=== PATIENT | female | born 1970 | race Caucasian/White ===

== ENCOUNTER 2019-01-21 14:03 | Emergency (ER) | payer SELFPAY ==
[~2019-01-21] VITALS: Ht 165.1 cm; Wt 77.1 kg
[2019-01-21 14:30] VITALS: BP 129/68
[2019-01-21 14:50] LABS: BILIRUBIN,URINE SMALL (NEG); CLARITY,URINE CLEAR; COLOR,URINE YELLOW; NITRITE,URINE NEGATIVE (NEG); PROTEIN,URINE NEGATIVE (NEG-TRACE)
[2019-01-21 14:57] LABS: BACTERIA,URINE MODERATE /HPF (0-FEW); RBC,URINE 0 /HPF (0-2); SQUAMOUS EPITHELIAL CELL,UR MANY /LPF
[2019-01-21] MEDS ORDERED: CIPROFLOXACIN 400MG PREMIX 200 ML IV ONE (15:30)
[2019-01-21] MEDS ORDERED: KETOROLAC 30 MG/ML VIAL. IV ONE (15:30)
[2019-01-21] MEDS ORDERED: ONDANSETRON PF 4 MG/2 ML VIAL. IV ONE (15:30)
--- NOTE | 2019-01-21 16:04 | RAD ---
Examination: CT ABDOMEN PELVIS WO CONTRAST History: UTI, upper mid abdominal pain Comparison/Correlation: None Findings: Axial images of the abdomen and pelvis were obtained without contrast. Sagittal and coronal reformatted images were provided. A nodule at the superior aspect of the left lung is partially seen. There may be minimal calcification within it. This is on the first image of the exam. Liver, spleen, pancreas, and adrenal glands are unremarkable. There is a 2.2 cm diameter calculus involving the gallbladder neck. No biliary dilatation or findings of acute inflammation. No radiopaque collecting system calculi. No hydronephrosis or perinephric stranding. Moderate quantity of stool in the colon noted. No bowel obstruction. The appendix is normal. Umbilical piercing is present. Uterus is unremarkable grossly. No ascites or pelvic free fluid. No enlarged abdominal or pelvic lymph nodes. Urinary bladder is unremarkable. Mild to moderate L5/S1 disc space narrowing with vacuum phenomenon is present. Impression: No radiopaque collecting system calculi or evidence of obstruction. Calculus is present lodged within the gallbladder neck. Correlate with symptoms. PQRS Compliance Statement: One or more of the following individualized dose reduction techniques were utilized for this examination: 1. Automated exposure control 2. Adjustment of the mA and/or kV according to patient size 3. Use of iterative reconstruction technique Electronically signed by: Gerson Clement MD (01/21/2019 4:01 PM) [facility]
--- NOTE | 2019-01-21 16:57 | RAD ---
ABDOMEN LTD History: Right upper quadrant pain. Comparison: CT abdomen and pelvis January 01, 2019. Technique: Transabdominal ultrasound images are obtained of the right upper quadrant. Findings: Visualized pancreas is unremarkable. Liver is normal in echogenicity. Right hepatic lobe measures 17.1 cm. Portal flow is hepatopedal. Large. Within the gallbladder. No pericholecystic fluid or gallbladder wall thickening. Common bile duct caliber is normal measuring 5 mm in diameter. The right kidney measures 11.2 x 4.9 x 4.1 cm in length and is without evidence of obstruction or stone. IVC is patent. IMPRESSION: 1. Cholelithiasis. 2. Otherwise, unremarkable abdominal ultrasound. Electronically signed by: Derik Yanes DO (01/21/2019 4:54 PM) [facility]
[2019-01-21] MEDS: CIPROFLOXACIN HCL 250 MG TABLET. PO ONE (17:19)
[2019-01-21] MEDS: MORPHINE SULFATE 10 MG/ML VIAL. IM ONE (17:19)
[2019-01-21] MEDS: ONDANSETRON ODT 4 MG TAB.RAPDIS. PO ONE (17:19)
[2019-01-21] MEDS ORDERED: HYDR-3164 PO (17:33)
[2019-01-21] MEDS ORDERED: ONDA4TAB7 PO (17:33)
[2019-01-21] MEDS ORDERED: CIPR500T94 PO (17:33)
--- NOTE | 2019-01-21 17:33 | PHYS DOC ---
Past Medical History Past Medical History: No Pertinent History Past Surgical History: Tonsillectomy, Tubal ligation Alcohol Use: None Drug Use: None Adult General Chief Complaint Chief Complaint: PAIN ON URINATION HPI HPI Patient is a 48 year old female who presents to the ED today complaining of 6 out of 10 right upper quadrant abdominal pain as well as dysuria, she states symptoms began 2 weeks ago, she states she was diagnosed with UTI as well as gallstones. She states she was put on Bactrim. She states she finished the Bactrim but still has UTI symptoms. Denies any fever, nausea, vomiting. Denies anything specifically relieving or exacerbating her symptoms. Review of Systems Review of Systems Constitutional: Denies fever or chills [] Eyes: Denies change in visual acuity, redness, or eye pain [] HENT: Denies nasal congestion or sore throat [] Respiratory: Denies cough or shortness of breath [] Cardiovascular: No additional information not addressed in HPI [] GI: Reports right upper quadrant abdominal pain, denies nausea, vomiting, bloody stools or diarrhea [] : Reports dysuria, denies hematuria [] Musculoskeletal: Denies back pain or joint pain [] Integument: Denies rash or skin lesions [] Neurologic: Denies headache, focal weakness or sensory changes [] All other systems were reviewed and found to be within normal limits, except as documented in this note. Current Medications Current Medications Current Medications Medications (Trade) Dose Ordered Sig/Loan Start Time Stop Time Status Last Admin Dose Admin Ciprofloxacin (Cipro) 500 mg 1X ONCE 01/21/19 17:30 01/21/19 17:31 01/21/19 17:19 500 MG Ciprofloxacin/ Dextrose 200 ml @ 200 mls/hr 1X ONCE 01/21/19 15:30 01/21/19 16:29 Cancel Ketorolac Tromethamine (Toradol 30mg Vial) 30 mg 1X ONCE 01/21/19 15:30 01/21/19 15:31 Cancel Morphine Sulfate (Morphine Sulfate) 5 mg 1X ONCE 01/21/19 17:30 01/21/19 17:31 01/21/19 17:19 5 MG Ondansetron HCl (Zofran Odt) 4 mg 1X ONCE 01/21/19 17:30 01/21/19 17:31 01/21/19 17:19 4 MG Ondansetron HCl (Zofran) 4 mg 1X ONCE 01/21/19 15:30 01/21/19 15:31 Cancel Allergies Allergies Allergies Coded Allergies Type Severity Reaction Last Updated Verified Penicillins Allergy Intermediate 01/21/19 Yes Physical Exam Physical Exam Constitutional: Well developed, well nourished, no acute distress, non-toxic appearance. [] HENT: Normocephalic, atraumatic, bilateral external ears normal, oropharynx moist, no oral exudates, nose normal. [] Eyes: PERRLA, EOMI, conjunctiva normal, no discharge. [] Neck: Normal range of motion, no tenderness, supple, no stridor. [] Cardiovascular:Heart rate regular rhythm, no murmur [] Lungs & Thorax: Bilateral breath sounds clear to auscultation [] Abdomen: Bowel sounds normal, soft, mild tenderness in the right upper quadrant with negative Ramos sign tenderness, no right lower quadrant tenderness, no masses, no pulsatile masses. [] Skin: Warm, dry, no erythema, no rash. [] Back: No tenderness, no CVA tenderness. [] Extremities: No tenderness, no cyanosis, no clubbing, ROM intact, no edema. [] Neurologic: Alert and oriented X 3, normal motor function, normal sensory function, no focal deficits noted. [] Psychologic: Affect normal, judgement normal, mood normal. [] Current Patient Data Vital Signs Vital Signs Date Time Temp Pulse Resp B/P (MAP) Pulse Ox O2 Delivery O2 Flow Rate FiO2 01/21/19 14:30 98.4 72 16 129/68 (88) 97 Room Air 98.4 Lab Values Laboratory Tests Test 01/21/19 14:40 Urine Collection Type Unknown Urine Color Yellow Urine Clarity Clear Urine pH 6.0 Urine Specific [place] >=1.030 Urine Protein Negative mg/dL (NEG-TRACE) Urine Glucose (UA) Negative mg/dL (NEG) Urine Ketones (Stick) Negative mg/dL (NEG) Urine Blood Negative (NEG) Urine Nitrite Negative (NEG) Urine Bilirubin Small (NEG) Urine Urobilinogen Dipstick 1.0 mg/dL (0.2 mg/dL) Urine Leukocyte Esterase Moderate (NEG) Urine RBC 0 /HPF (0-2) Urine WBC 11-20 /HPF (0-4) Urine Squamous Epithelial Cells Many /LPF Urine Bacteria Moderate /HPF (0-FEW) Urine Mucus Mod /LPF EKG EKG [] Radiology/Procedures Radiology/Procedures []PROCEDURE: ABDOMEN LTD ABDOMEN LTD History: Right upper quadrant pain. Comparison: CT abdomen and pelvis January 01, 2019. Technique: Transabdominal ultrasound images are obtained of the right upper quadrant. Findings: Visualized pancreas is unremarkable. Liver is normal in echogenicity. Right hepatic lobe measures 17.1 cm. Portal flow is hepatopedal. Large. Within the gallbladder. No pericholecystic fluid or gallbladder wall thickening. Common bile duct caliber is normal measuring 5 mm in diameter. The right kidney measures 11.2 x 4.9 x 4.1 cm in length and is without evidence of obstruction or stone. IVC is patent. IMPRESSION: 1. Cholelithiasis. 2. Otherwise, unremarkable abdominal ultrasound. Electronically signed by: Derik Yanes DO (01/21/2019 4:54 PM) [facility] DICTATED and SIGNED BY: DERIK YANES DO DATE: 01/21/191653 PROCEDURE: CT ABDOMEN PELVIS WO CONTRAST Examination: CT ABDOMEN PELVIS WO CONTRAST History: UTI, upper mid abdominal pain Comparison/Correlation: None Findings: Axial images of the abdomen and pelvis were obtained without contrast. Sagittal and coronal reformatted images were provided. A nodule at the superior aspect of the left lung is partially seen. There may be minimal calcification within it. This is on the first image of the exam. Liver, spleen, pancreas, and adrenal glands are unremarkable. There is a 2.2 cm diameter calculus involving the gallbladder neck. No biliary dilatation or findings of acute inflammation. No radiopaque collecting system calculi. No hydronephrosis or perinephric stranding. Moderate quantity of stool in the colon noted. No bowel obstruction. The appendix is normal. Umbilical piercing is present. Uterus is unremarkable grossly. No ascites or pelvic free fluid. No enlarged abdominal or pelvic lymph nodes. Urinary bladder is unremarkable. Mild to moderate L5/S1 disc space narrowing with vacuum phenomenon is present. Impression: No radiopaque collecting system calculi or evidence of obstruction. Calculus is present lodged within the gallbladder neck. Correlate with symptoms. PQRS Compliance Statement: One or more of the following individualized dose reduction techniques were utilized for this examination: 1. Automated exposure control 2. Adjustment of the mA and/or kV according to patient size 3. Use of iterative reconstruction technique Electronically signed by: Gerson Kaufman MD (01/21/2019 4:01 PM) [facility] DICTATED and SIGNED BY: GERSON KAUFMAN MD DATE: 01/21/19 160 Course & Med Decision Making Course & Med Decision Making Pertinent Labs and Imaging studies reviewed. (See chart for details) This is a 48-year-old female patient presenting to the ED today with dysuria and right upper quadrant abdominal pain, was diagnosed with gallstones and UTI roughly 2 weeks ago, finished Bactrim yesterday, still has dysuria. Limited right upper quadrant abdominal ultrasound noted for cholelithiasis, no ch olecystitis. CT of the abdomen and pelvis is negative. Urine positive for UTI. Was started on Cipro. Provided that general surgeon for follow-up. Dragon Disclaimer Dragon Disclaimer This electronic medical record was generated, in whole or in part, using a voice recognition dictation system. Departure Departure Impression: Primary Impression: Cholelithiasis Additional Impression: Urinary tract infection Disposition: HOME, SELF-CARE Condition: STABLE Referrals: NO PCP (PCP) EVA PARMAR MD follow up in one week Patient Instructions: Cholelithiasis, [id number], Urinary Tract Infection Additional Instructions: You were evaluated in the emergency room and noted to have gallbladder disease as well as infection in your urine. We put you on Cipro, ensure you complete them. Follow-up with the general surgeon provided as well as a primary care doctor in the next 7 days. He Scripts Hydrocodone/Apap 5-325 (NORCO 5-325 TABLET) 1 Each Tablet 1 TAB PO Q6HRS, #12 TAB Prov: VICKI CHRISTOPHER COLOR TECHNICIAN 01/21/19 Ondansetron Hcl (ZOFRAN) 4 Mg Tablet 1 TAB PO Q6HRS, #20 TAB Prov: MUTUNGA,VICKI COLOR TECHNICIAN 01/21/19 Ciprofloxacin Hcl (CIPRO) 500 Mg Tablet 1 TAB PO BID, #14 TAB Prov: MUTUNGAVICKI COLOR TECHNICIAN 01/21/19 Problem Qualifiers Primary Impression: Cholelithiasis Cholelithiasis location: gallbladder Cholecystitis presence: without cholecystitis Biliary obstruction: without biliary obstruction Qualified Codes: K80.20 - Calculus of gallbladder without cholecystitis without obstruction Additional Impression: Urinary tract infection Urinary tract infection type: site unspecified Hematuria presence: without hematuria Qualified Codes: N39.0 - Urinary tract infection, site not specified VICKI CHRISTOPHER APRN Jan 21, 2019 17:33
== END 2019-01-21 17:38 | disposition home or self-care (01) ==
LOC: ER 14:03
DX: N39.0 Urinary tract infection, site not specified (principal); K80.20 Calculus of gallbladder without cholecystitis without obstruction; Z98.51 Tubal ligation status; Z88.0 Allergy status to penicillin
CPT/HCPCS: 74176; 76705; 81001; 87086; 96372; 99285; J2270; Q0162

== ENCOUNTER 2019-04-06 20:57 | Inpatient (IN) | payer OTHER ==
[~2019-04-06] VITALS: Ht 165.1 cm; Wt 77.1 kg
[~2019-04-06 20:57] MED LIST: CIPR500T94 PO; HYDR-3164 PO; ONDA4TAB7 PO
--- NOTE | 2019-04-06 21:18 | PHYS DOC ---
Past Medical History Past Medical History: No Pertinent History Past Surgical History: Tonsillectomy, Tubal ligation Alcohol Use: None Drug Use: None Adult General Chief Complaint Chief Complaint: syncope HPI HPI Patient is a 49-year-old female who presents via EMS after reportedly having syncopal episode at home. Patient states that she had a few drinks of alcohol beforehand and then was getting sick and vomiting and she had a syncopal event. She denies any chest pain or shortness of breath. She also denies any headache. Patient states that she has been under a great deal of stress recently stating that she was just diagnosed with cervical cancer.[] Review of Systems Review of Systems Constitutional: Denies fever or chills [] Respiratory: Denies cough or shortness of breath [] Cardiovascular: No additional information not addressed in HPI [] GI: Denies abdominal pain. Complains of nausea and vomiting without diarrhea [] Musculoskeletal: Denies back pain or joint pain [] Integument: Denies rash or skin lesions [] Neurologic: Denies headache, focal weakness or sensory changes. Positive syncope. [] All other systems were reviewed and found to be within normal limits, except as documented in this note. Current Medications Current Medications Current Medications Medications (Trade) Dose Ordered Sig/Loan Start Time Stop Time Status Last Admin Dose Admin Fentanyl Citrate (Fentanyl 2ml Vial) 50 mcg 1X ONCE 04/06/19 23:00 04/06/19 23:01 DC 04/06/19 23:34 50 MCG Info (CONTRAST GIVEN -- Rx MONITORING) 1 each PRN DAILY PRN 04/06/19 23:00 04/08/19 22:59 Iohexol (Omnipaque 300 Mg/ml) 75 ml 1X ONCE 04/06/19 23:00 04/06/19 23:01 DC Sodium Chloride 1,000 ml @ 1,000 mls/hr 1X ONCE 04/06/19 21:30 04/06/19 22:29 DC 04/06/19 21:32 1,000 MLS/HR Allergies Allergies Allergies Coded Allergies Type Severity Reaction Last Updated Verified Penicillins Allergy Intermediate 01/21/19 Yes Physical Exam Physical Exam Constitutional: Well developed, well nourished, no acute distress, moderately anxious. [] HENT: Normocephalic, atraumatic, bilateral external ears normal, oropharynx [address], no oral exudates, nose normal. [] Eyes: PERRLA, EOMI, conjunctiva normal, no discharge. [] Neck: Normal range of motion, no tenderness, supple, no stridor. [] Cardiovascular: Regular rate and rhythm[] Lungs & Thorax: Bilateral breath sounds clear to auscultation [] Abdomen: Bowel sounds normal, soft, no tenderness. [] Skin: Warm, dry, no erythema, no rash. [] Extremities: No tenderness, no cyanosis, no clubbing, ROM intact, no edema. [] Neurologic: Alert and oriented X 3, no focal deficits noted. [] Current Patient Data Vital Signs Vital Signs Date Time Temp Pulse Resp B/P (MAP) Pulse Ox O2 Delivery O2 Flow Rate FiO2 04/06/19 23:34 16 97 Room Air 04/06/19 20:57 97.6 90 98/53 (68) 97.6 Lab Values Laboratory Tests Test 04/06/19 21:18 04/06/19 21:45 White Blood Count 9.2 x10^3/uL (4.0-11.0) Red Blood Count 5.17 x10^6/uL (3.50-5.40) Hemoglobin 16.1 g/dL (12.0-15.5) H Hematocrit 47.2 % (36.0-47.0) H Mean Corpuscular Volume 91 fL (79-100) Mean Corpuscular Hemoglobin 31 pg (25-35) Mean Corpuscular Hemoglobin Concent 34 g/dL (31-37) Red Cell Distribution Width 13.7 % (11.5-14.5) Platelet Count 426 x10^3/uL (140-400) H Neutrophils (%) (Auto) 49 % (31-73) Lymphocytes (%) (Auto) 40 % (24-48) Monocytes (%) (Auto) 8 % (0-9) Eosinophils (%) (Auto) 2 % (0-3) Basophils (%) (Auto) 1 % (0-3) Neutrophils # (Auto) 4.5 x10^3/uL (1.8-7.7) Lymphocytes # (Auto) 3.7 x10^3/uL (1.0-4.8) Monocytes # (Auto) 0.7 x10^3/uL (0.0-1.1) Eosinophils # (Auto) 0.2 x10^3/uL (0.0-0.7) Basophils # (Auto) 0.1 x10^3/uL (0.0-0.2) Sodium Level 144 mmol/L (136-145) Potassium Level 3.5 mmol/L (3.5-5.1) Chloride Level 103 mmol/L (98-107) Carbon Dioxide Level 29 mmol/L (21-32) Anion Gap 12 (6-14) Blood Urea Nitrogen 9 mg/dL (7-20) Creatinine 0.8 mg/dL (0.6-1.0) Estimated GFR (Cockcroft-Gault) 76.9 BUN/Creatinine Ratio 11 (6-20) Glucose Level 102 mg/dL (70-99) H Calcium Level 9.0 mg/dL (8.5-10.1) Magnesium Level 2.1 mg/dL (1.8-2.4) Total Bilirubin 0.3 mg/dL (0.2-1.0) Aspartate Amino Transferase (AST) 32 U/L (15-37) Alanine Aminotransferase (ALT) 61 U/L (14-59) H Alkaline Phosphatase 44 U/L (46-116) L Total Protein 8.0 g/dL (6.4-8.2) Albumin 3.9 g/dL (3.4-5.0) Albumin/Globulin Ratio 1.0 (1.0-1.7) Ethyl Alcohol Level 221 mg/dL (0-10) H Urine Collection Type Unknown Urine Color Yellow Urine Clarity Clear Urine pH 5.5 Urine Specific [place] 1.010 Urine Protein Negative mg/dL (NEG-TRACE) Urine Glucose (UA) Negative mg/dL (NEG) Urine Ketones (Stick) Negative mg/dL (NEG) Urine Blood Moderate (NEG) Urine Nitrite Negative (NEG) Urine Bilirubin Negative (NEG) Urine Urobilinogen Dipstick 0.2 mg/dL (0.2 mg/dL) Urine Leukocyte Esterase Small (NEG) Urine RBC 11-20 /HPF (0-2) Urine WBC 5-10 /HPF (0-4) Urine Squamous Epithelial Cells Mod /LPF Urine Bacteria Few /HPF (0-FEW) Urine Mucus Mod /LPF Laboratory Tests 04/06/19 21:18 Laboratory Tests 04/06/19 21:18 EKG EKG EKG demonstrates normal sinus rhythm with rate of 67.[] Radiology/Procedures Radiology/Procedures [] Impressions: PROCEDURE: CT ABD PELV W/ IV CONTRST ONLY CT ABD PELV W/ IV CONTRST ONLY History: Lower abdominal pain. Recent endometrial biopsy. Technique: After the administration of intravenous contrast, CT imaging was performed of the abdomen and pelvis. Multiplanar images are reviewed. Exposure: One or more of the following individualized dose reduction techniques were utilized for this examination: 1. Automated exposure control 2. Adjustment of the mA and/or kV according to patient size 3. Use of iterative reconstruction technique. Comparison: None Findings: Lower chest: No consolidation or pleural effusion. Abdomen and pelvis: The liver, spleen, adrenal glands, and pancreas are unremarkable. Cholelithiasis. Mild gallbladder wall thickening. No pericholecystic fluid. Normal appearance of the kidneys. No hydronephrosis. No renal calculi. Normal appendix. No evidence of bowel obstruction. Mild transverse colonic wall thickening at the hepatic flexure. Pelvic contents are unremarkable. No ascites. No pathologic lymphadenopathy. Bones: No pathologic osseous lesions. Lower lumbar spondylosis most prominent L5-S1. Impression: 1. Cholelithiasis with suggestion of gallbladder wall thickening. If concern for gallbladder pathology recommend ultrasound. 2. Mild apparent transverse colonic wall thickening, may relate to nondistention. Correlate for colitis. Electronically signed by: Derik Dewitt DO (04/06/2019 11:33 PM) [id number] PROCEDURE: CT HEAD WO CONTRAST CT HEAD WO CONTRAST History: Altered mental status. History of cervical cancer. Comparison: None. Technique: Noncontrast CT imaging was performed of the head. Coronal reconstruction was performed. Exposure: One or more of the following individualized dose reduction techniques were utilized for this examination: 1. Automated exposure control 2. Adjustment of the mA and/or kV according to patient size 3. Use of iterative reconstruction technique. Findings: No intracranial hemorrhage. No mass effect. No hydrocephalus. Extra-axial spaces are unremarkable. Imaged orbits are unremarkable. Imaged paranasal sinuses and mastoid air cells are clear. Impression: 1. No acute intracranial abnormality. Electronically signed by: Derik Dewitt DO (04/06/2019 11:21 PM) [id number] DICTATED and SIGNED BY: DERIK DEWITT DO DATE: 04/06/192320 Course & Med Decision Making Course & Med Decision Making Pertinent Labs and Imaging studies reviewed. (See chart for details) [] Dragon Disclaimer Dragon Disclaimer This electronic medical record was generated, in whole or in part, using a voice recognition dictation system. Departure Departure Impression: Primary Impression: Vasovagal syncope Additional Impressions: Alcohol intoxication Altered mental state Lower abdominal pain Disposition: ADMITTED INPATIENT Admitting Physician: SHAYY (Dr. Robin) Condition: IMPROVED Referrals: NO PCP (PCP) Patient Instructions: Alcohol Intoxication, Syncope Scripts Ondansetron Hcl (ZOFRAN) 4 Mg Tablet 4 MG PO PRN TID PRN for NAUSEA, #15 TAB nausea/vomiting Prov: MARILYN SAN Jr. DO 04/06/19 Problem Qualifiers Additional Impressions: Alcohol intoxication Complication of substance-induced condition: uncomplicated Qualified Codes: F10.920 - Alcohol use, unspecified with intoxication, uncomplicated Altered mental state Altered mental status type: unspecified Qualified Codes: R41.82 - Altered mental status, unspecified MARILYN SAN Jr. DO Apr 06, 2019 21:18
[2019-04-06 21:25] LABS: BASO # 0.1 x10^3/uL (0.0-0.2); BASO % 1 % (0-3); EOS # 0.2 x10^3/uL (0.0-0.7); EOS % 2 % (0-3); HEMATOCRIT 47.2 % (36.0-47.0); HEMOGLOBIN 16.1 g/dL (12.0-15.5); LYMPH # 3.7 x10^3/uL (1.0-4.8); LYMPH % 40 % (24-48); MEAN CORPUSCULAR HEMOGLOBIN 31 pg (25-35); MEAN CORPUSCULAR HGB CONC 34 g/dL (31-37); MEAN CORPUSCULAR VOLUME 91 fL (79-100); MONO # 0.7 x10^3/uL (0.0-1.1); MONO % 8 % (0-9); NEUT # 4.5 x10^3/uL (1.8-7.7); NEUT % 49 % (31-73); PLATELET COUNT 426 x10^3/uL (140-400); RED BLOOD COUNT 5.17 x10^6/uL (3.50-5.40); RED CELL DISTRIBUTION WIDTH 13.7 % (11.5-14.5); WHITE BLOOD COUNT 9.2 x10^3/uL (4.0-11.0)
[2019-04-06] MEDS ORDERED: IV NORMAL SALINE 1000ML BAG 1,000 ML IV ONE (21:30)
[2019-04-06 21:33] LABS: CREATININE 0.8 mg/dL (0.6-1.0); GFR 76.9; POTASSIUM 3.5 mmol/L (3.5-5.1)
[2019-04-06 21:38] LABS: ALBUMIN 3.9 g/dL (3.4-5.0); MAGNESIUM 2.1 mg/dL (1.8-2.4); TOTAL BILIRUBIN 0.3 mg/dL (0.2-1.0)
[2019-04-06 22:05] LABS: BILIRUBIN,URINE NEGATIVE (NEG); CLARITY,URINE CLEAR; COLOR,URINE YELLOW; NITRITE,URINE NEGATIVE (NEG); PH,URINE 5.5; PROTEIN,URINE NEGATIVE (NEG-TRACE); UROBILINOGEN,URINE 0.2 mg/dL (0.2 mg/dL)
[2019-04-06 22:13] LABS: SQUAMOUS EPITHELIAL CELL,UR MOD /LPF
[2019-04-06 22:14] LABS: BACTERIA,URINE FEW /HPF (0-FEW)
[2019-04-06] MEDS ORDERED: ONDA4TAB7 PO (22:22)
--- NOTE | 2019-04-06 22:52 | RAD ---
EXAM: AP View of the chest DATE: 04/06/2019 9:13 PM INDICATION: Syncope COMPARISON: No Prior FINDINGS: The heart is not enlarged. Mediastinal and hilar contours are normal. No focal parenchymal airspace opacity. No pleural effusion or pneumothorax. IMPRESSION: 1. No radiographic evidence for acute cardiopulmonary process. Electronically signed by: Rob Wiley MD (04/06/2019 10:48 PM) [facility]
[2019-04-06] MEDS ORDERED: IOHEXOL 300 MG/ML 100ML VIAL. IV ONE (23:00)
[2019-04-06] MEDS ORDERED: CONTRAST GIVEN. MC PRN (23:00)
[2019-04-06] MEDS ORDERED: fentaNYL PF VIAL 100 MCG/2 ML VIAL IVP ONE (23:00)
--- NOTE | 2019-04-06 23:24 | RAD ---
CT HEAD WO CONTRAST History: Altered mental status. History of cervical cancer. Comparison: None. Technique: Noncontrast CT imaging was performed of the head. Coronal reconstruction was performed. Exposure: One or more of the following individualized dose reduction techniques were utilized for this examination: 1. Automated exposure control 2. Adjustment of the mA and/or kV according to patient size 3. Use of iterative reconstruction technique. Findings: No intracranial hemorrhage. No mass effect. No hydrocephalus. Extra-axial spaces are unremarkable. Imaged orbits are unremarkable. Imaged paranasal sinuses and mastoid air cells are clear. Impression: 1. No acute intracranial abnormality. Electronically signed by: Derik Yanes DO (04/06/2019 11:21 PM) [facility]
--- NOTE | 2019-04-06 23:36 | RAD ---
CT ABD PELV W/ IV CONTRST ONLY History: Lower abdominal pain. Recent endometrial biopsy. Technique: After the administration of intravenous contrast, CT imaging was performed of the abdomen and pelvis. Multiplanar images are reviewed. Exposure: One or more of the following individualized dose reduction techniques were utilized for this examination: 1. Automated exposure control 2. Adjustment of the mA and/or kV according to patient size 3. Use of iterative reconstruction technique. Comparison: None Findings: Lower chest: No consolidation or pleural effusion. Abdomen and pelvis: The liver, spleen, adrenal glands, and pancreas are unremarkable. Cholelithiasis. Mild gallbladder wall thickening. No pericholecystic fluid. Normal appearance of the kidneys. No hydronephrosis. No renal calculi. Normal appendix. No evidence of bowel obstruction. Mild transverse colonic wall thickening at the hepatic flexure. Pelvic contents are unremarkable. No ascites. No pathologic lymphadenopathy. Bones: No pathologic osseous lesions. Lower lumbar spondylosis most prominent L5-S1. Impression: 1. Cholelithiasis with suggestion of gallbladder wall thickening. If concern for gallbladder pathology recommend ultrasound. 2. Mild apparent transverse colonic wall thickening, may relate to nondistention. Correlate for colitis. Electronically signed by: Derik Yanes DO (04/06/2019 11:33 PM) [facility]
[2019-04-06] MEDS ORDERED: ONDANSETRON PF 4 MG/2 ML VIAL. IV PRN (23:45)
[2019-04-07] VITALS (7 sets, daily range): BP systolic 90–115; BP diastolic 41–67
[2019-04-07] MEDS: MORPHINE SULFATE 2 MG/ML VIAL. IV PRN ×2 (01:38→08:45)
[2019-04-07 08:50] LABS: BASO # 0.1 x10^3/uL (0.0-0.2); BASO % 1 % (0-3); EOS # 0.2 x10^3/uL (0.0-0.7); EOS % 3 % (0-3); HEMOGLOBIN 14.2 g/dL (12.0-15.5); LYMPH # 2.3 x10^3/uL (1.0-4.8); LYMPH % 31 % (24-48); MEAN CORPUSCULAR HEMOGLOBIN 31 pg (25-35); MEAN CORPUSCULAR HGB CONC 34 g/dL (31-37); MEAN CORPUSCULAR VOLUME 93 fL (79-100); MONO # 0.8 x10^3/uL (0.0-1.1); MONO % 10 % (0-9); NEUT % 55 % (31-73); PLATELET COUNT 370 x10^3/uL (140-400); RED BLOOD COUNT 4.53 x10^6/uL (3.50-5.40); RED CELL DISTRIBUTION WIDTH 13.7 % (11.5-14.5); WHITE BLOOD COUNT 7.3 x10^3/uL (4.0-11.0)
[2019-04-07 09:12] LABS: CALCIUM 8.5 mg/dL (8.5-10.1); CREATININE 0.7 mg/dL (0.6-1.0); GFR 89.7; POTASSIUM 3.8 mmol/L (3.5-5.1)
[2019-04-07] MEDS: NICOTINE 21MG PATCH. TD SCH (10:09)
--- NOTE | 2019-04-07 11:11 | PDOC1 ---
History and Physical Date of Admission Date of Admission DATE: 04/07/19 TIME: 11:10 Identification/Chief Complaint Chief Complaint seen in er , 49-year-old female who presents via EMS after reportedly having syncopal episode at home. Patient states that she had a few drinks of alcohol beforehand and then was getting sick and vomiting and she had a syncopal event. She denies any chest pain or shortness of breath. She also denies any headache. Patient states that she has been under a great deal of stress recently stating that she was just diagnosed with cervical cancer. also c/o RUQ DISCOMFORT, LOWER ABD PAIN AFTER CERVICAL BX LAST WEEK, WAS TOLD SHE HAS GALLSTONES[ Past Medical History Past Medical History CERVICAL CANCER Pulmonary: COPD Heme/Onc: Cancer Social History ALCOHOL: heavy Current Problem List Problem List Problems Medical Problems: (1) Alcohol intoxication Status: Acute (2) Altered mental state Status: Acute (3) Lower abdominal pain Status: Acute (4) Vasovagal syncope Status: Acute Current Medications Current Medications Current Medications Sodium Chloride 1,000 ml @ 1,000 mls/hr 1X ONCE IV Last administered on 04/06/19at 21:32; Start 04/06/19 at 21:30; Stop 04/06/19 at 22:29; Status DC Fentanyl Citrate (Fentanyl 2ml Vial) 50 mcg 1X ONCE IVP Last administered on 04/06/19at 23:34; Start 04/06/19 at 23:00; Stop 04/06/19 at 23:01; Status DC Iohexol (Omnipaque 300 Mg/ml) 75 ml 1X ONCE IV Last administered on 04/06/19at 23:00; Start 04/06/19 at 23:00; Stop 04/06/19 at 23:01; Status DC Info (CONTRAST GIVEN -- Rx MONITORING) 1 each PRN DAILY PRN MC SEE COMMENTS; Start 04/06/19 at 23:00; Stop 04/08/19 at 22:59 Ondansetron HCl (Zofran) 4 mg PRN Q8HRS PRN IV NAUSEA/VOMITING 1ST CHOICE; Start 04/06/19 at 23:45; Stop 04/07/19 at 23:44 Morphine Sulfate (Morphine Sulfate) 2 mg PRN Q2HR PRN IV SEVERE PAIN 7-10 Last administered on 04/07/19at 08:45; Start 04/06/19 at 23:45; Stop 04/07/19 at 23:44 Nicotine (Nicoderm Cq 21mg) 1 patch DAILY TD Last administered on 04/07/19at 10:09; Start 04/07/19 at 09:20 Active Scripts Active Allergies Allergies: Coded Allergies: Penicillins (Verified Allergy, Intermediate, 01/21/19) ROS Review of System Review of Systems Review of Systems Constitutional: Denies fever or chills [] Respiratory: Denies cough or shortness of breath [] Cardiovascular: No additional information not addressed in HPI [] GI: MILD ruq pain, lower abdominal pain. Complains of nausea and vomiting without diarrhea [] Musculoskeletal: Denies back pain or joint pain [] Integument: Denies rash or skin lesions [] Neurologic: Denies headache, focal weakness or sensory changes. Positive syncope. [] 14 pt systems were reviewed and found to be within normal limits, except as documented PSYCHOLOGICAL ROS: YES: Anxiety Physical Exam Physical Exam Physical Exam Physical Exam Constitutional: Well developed, well nourished, no acute distress, moderately anxious. [] HENT: Normocephalic, atraumatic, bilateral external ears normal, oropharynx moist, no oral exudates, nose normal. [] Eyes: PERRLA, EOMI, conjunctiva normal, no discharge. [] Neck: Normal range of motion, no tenderness, supple, no stridor. [] Cardiovascular: Regular rate and rhythm[] Lungs & Thorax: Bilateral breath sounds clear to auscultation [] Abdomen: Bowel sounds normal, soft, mild ruq tenderness. [] Skin: Warm, dry, no erythema, no rash. [] Extremities: No tenderness, no cyanosis, no clubbing, ROM intact, no edema. [] Neurologic: Alert and oriented X 3, no focal deficits noted. [] General: Alert, Oriented X3, Cooperative, No acute distress HEENT: Atraumatic Lungs: Clear to auscultation Heart: RRR, no gallops Breasts: Not examined Abdomen: Other (MILD RUQ PAIN) Rectal Exam: not examined PELVIC: Examination not indicated Extremities: No cyanosis Neuro: Normal speech, Strength at 5/5 X4 ext, Cranial nerves 3-12 NL Psych/Mental Status: Mental status NL, Mood NL Vitals Vitals Vital Signs Date Time Temp Pulse Resp B/P (MAP) Pulse Ox O2 Delivery O2 Flow Rate FiO2 04/07/19 08:45 18 Room Air 04/07/19 07:00 98.6 86 105/59 (74) 95 98.6 Labs Labs Laboratory Tests Test 04/06/19 21:18 04/06/19 21:45 04/07/19 07:35 White Blood Count 9.2 x10^3/uL (4.0-11.0) 7.3 x10^3/uL (4.0-11.0) Red Blood Count 5.17 x10^6/uL (3.50-5.40) 4.53 x10^6/uL (3.50-5.40) Hemoglobin 16.1 g/dL (12.0-15.5) 14.2 g/dL (12.0-15.5) Hematocrit 47.2 % (36.0-47.0) 42.0 % (36.0-47.0) Mean Corpuscular Volume 91 fL (79-100) 93 fL (79-100) Mean Corpuscular Hemoglobin 31 pg (25-35) 31 pg (25-35) Mean Corpuscular Hemoglobin Concent 34 g/dL (31-37) 34 g/dL (31-37) Red Cell Distribution Width 13.7 % (11.5-14.5) 13.7 % (11.5-14.5) Platelet Count 426 x10^3/uL (140-400) 370 x10^3/uL (140-400) Neutrophils (%) (Auto) 49 % (31-73) 55 % (31-73) Lymphocytes (%) (Auto) 40 % (24-48) 31 % (24-48) Monocytes (%) (Auto) 8 % (0-9) 10 % (0-9) Eosinophils (%) (Auto) 2 % (0-3) 3 % (0-3) Basophils (%) (Auto) 1 % (0-3) 1 % (0-3) Neutrophils # (Auto) 4.5 x10^3/uL (1.8-7.7) 4.0 x10^3/uL (1.8-7.7) Lymphocytes # (Auto) 3.7 x10^3/uL (1.0-4.8) 2.3 x10^3/uL (1.0-4.8) Monocytes # (Auto) 0.7 x10^3/uL (0.0-1.1) 0.8 x10^3/uL (0.0-1.1) Eosinophils # (Auto) 0.2 x10^3/uL (0.0-0.7) 0.2 x10^3/uL (0.0-0.7) Basophils # (Auto) 0.1 x10^3/uL (0.0-0.2) 0.1 x10^3/uL (0.0-0.2) Sodium Level 144 mmol/L (136-145) 145 mmol/L (136-145) Potassium Level 3.5 mmol/L (3.5-5.1) 3.8 mmol/L (3.5-5.1) Chloride Level 103 mmol/L (98-107) 108 mmol/L (98-107) Carbon Dioxide Level 29 mmol/L (21-32) 29 mmol/L (21-32) Anion Gap 12 (6-14) 8 (6-14) Blood Urea Nitrogen 9 mg/dL (7-20) 8 mg/dL (7-20) Creatinine 0.8 mg/dL (0.6-1.0) 0.7 mg/dL (0.6-1.0) Estimated GFR (Cockcroft-Gault) 76.9 89.7 BUN/Creatinine Ratio 11 (6-20) Glucose Level 102 mg/dL (70-99) 84 mg/dL (70-99) Calcium Level 9.0 mg/dL (8.5-10.1) 8.5 mg/dL (8.5-10.1) Magnesium Level 2.1 mg/dL (1.8-2.4) Total Bilirubin 0.3 mg/dL (0.2-1.0) Aspartate Amino Transf (AST/SGOT) 32 U/L (15-37) Alanine Aminotransferase (ALT/SGPT) 61 U/L (14-59) Alkaline Phosphatase 44 U/L (46-116) Total Protein 8.0 g/dL (6.4-8.2) Albumin 3.9 g/dL (3.4-5.0) Albumin/Globulin Ratio 1.0 (1.0-1.7) Ethyl Alcohol Level 221 mg/dL (0-10) Urine Collection Type Unknown Urine Color Yellow Urine Clarity Clear Urine pH 5.5 Urine Specific [place] 1.010 Urine Protein Negative mg/dL (NEG-TRACE) Urine Glucose (UA) Negative mg/dL (NEG) Urine Ketones (Stick) Negative mg/dL (NEG) Urine Blood Moderate (NEG) Urine Nitrite Negative (NEG) Urine Bilirubin Negative (NEG) Urine Urobilinogen Dipstick 0.2 mg/dL (0.2 mg/dL) Urine Leukocyte Esterase Small (NEG) Urine RBC 11-20 /HPF (0-2) Urine WBC 5-10 /HPF (0-4) Urine Squamous Epithelial Cells Mod /LPF Urine Bacteria Few /HPF (0-FEW) Urine Mucus Mod /LPF Laboratory Tests Test 04/06/19 21:18 04/06/19 21:45 04/07/19 07:35 White Blood Count 9.2 x10^3/uL (4.0-11.0) 7.3 x10^3/uL (4.0-11.0) Red Blood Count 5.17 x10^6/uL (3.50-5.40) 4.53 x10^6/uL (3.50-5.40) Hemoglobin 16.1 g/dL (12.0-15.5) 14.2 g/dL (12.0-15.5) Hematocrit 47.2 % (36.0-47.0) 42.0 % (36.0-47.0) Mean Corpuscular Volume 91 fL (79-100) 93 fL (79-100) Mean Corpuscular Hemoglobin 31 pg (25-35) 31 pg (25-35) Mean Corpuscular Hemoglobin Concent 34 g/dL (31-37) 34 g/dL (31-37) Red Cell Distribution Width 13.7 % (11.5-14.5) 13.7 % (11.5-14.5) Platelet Count 426 x10^3/uL (140-400) 370 x10^3/uL (140-400) Neutrophils (%) (Auto) 49 % (31-73) 55 % (31-73) Lymphocytes (%) (Auto) 40 % (24-48) 31 % (24-48) Monocytes (%) (Auto) 8 % (0-9) 10 % (0-9) Eosinophils (%) (Auto) 2 % (0-3) 3 % (0-3) Basophils (%) (Auto) 1 % (0-3) 1 % (0-3) Neutrophils # (Auto) 4.5 x10^3/uL (1.8-7.7) 4.0 x10^3/uL (1.8-7.7) Lymphocytes # (Auto) 3.7 x10^3/uL (1.0-4.8) 2.3 x10^3/uL (1.0-4.8) Monocytes # (Auto) 0.7 x10^3/uL (0.0-1.1) 0.8 x10^3/uL (0.0-1.1) Eosinophils # (Auto) 0.2 x10^3/uL (0.0-0.7) 0.2 x10^3/uL (0.0-0.7) Basophils # (Auto) 0.1 x10^3/uL (0.0-0.2) 0.1 x10^3/uL (0.0-0.2) Sodium Level 144 mmol/L (136-145) 145 mmol/L (136-145) Potassium Level 3.5 mmol/L (3.5-5.1) 3.8 mmol/L (3.5-5.1) Chloride Level 103 mmol/L (98-107) 108 mmol/L (98-107) Carbon Dioxide Level 29 mmol/L (21-32) 29 mmol/L (21-32) Anion Gap 12 (6-14) 8 (6-14) Blood Urea Nitrogen 9 mg/dL (7-20) 8 mg/dL (7-20) Creatinine 0.8 mg/dL (0.6-1.0) 0.7 mg/dL (0.6-1.0) Estimated GFR (Cockcroft-Gault) 76.9 89.7 BUN/Creatinine Ratio 11 (6-20) Glucose Level 102 mg/dL (70-99) 84 mg/dL (70-99) Calcium Level 9.0 mg/dL (8.5-10.1) 8.5 mg/dL (8.5-10.1) Magnesium Level 2.1 mg/dL (1.8-2.4) Total Bilirubin 0.3 mg/dL (0.2-1.0) Aspartate Amino Transf (AST/SGOT) 32 U/L (15-37) Alanine Aminotransferase (ALT/SGPT) 61 U/L (14-59) Alkaline Phosphatase 44 U/L (46-116) Total Protein 8.0 g/dL (6.4-8.2) Albumin 3.9 g/dL (3.4-5.0) Albumin/Globulin Ratio 1.0 (1.0-1.7) Ethyl Alcohol Level 221 mg/dL (0-10) Urine Collection Type Unknown Urine Color Yellow Urine Clarity Clear Urine pH 5.5 Urine Specific [place] 1.010 Urine Protein Negative mg/dL (NEG-TRACE) Urine Glucose (UA) Negative mg/dL (NEG) Urine Ketones (Stick) Negative mg/dL (NEG) Urine Blood Moderate (NEG) Urine Nitrite Negative (NEG) Urine Bilirubin Negative (NEG) Urine Urobilinogen Dipstick 0.2 mg/dL (0.2 mg/dL) Urine Leukocyte Esterase Small (NEG) Urine RBC 11-20 /HPF (0-2) Urine WBC 5-10 /HPF (0-4) Urine Squamous Epithelial Cells Mod /LPF Urine Bacteria Few /HPF (0-FEW) Urine Mucus Mod /LPF Images Images CT ABD PELV W/ IV CONTRST ONLY History: Lower abdominal pain. Recent endometrial biopsy. Technique: After the administration of intravenous contrast, CT imaging was performed of the abdomen and pelvis. Multiplanar images are reviewed. Exposure: One or more of the following individualized dose reduction techniques were utilized for this examination: 1. Automated exposure control 2. Adjustment of the mA and/or kV according to patient size 3. Use of iterative reconstruction technique. Comparison: None Findings: Lower chest: No consolidation or pleural effusion. Abdomen and pelvis: The liver, spleen, adrenal glands, and pancreas are unremarkable. Cholelithiasis. Mild gallbladder wall thickening. No pericholecystic fluid. Normal appearance of the kidneys. No hydronephrosis. No renal calculi. Normal appendix. No evidence of bowel obstruction. Mild transverse colonic wall thickening at the hepatic flexure. Pelvic contents are unremarkable. No ascites. No pathologic lymphadenopathy. Bones: No pathologic osseous lesions. Lower lumbar spondylosis most prominent L5-S1. Impression: 1. Cholelithiasis with suggestion of gallbladder wall thickening. If concern for gallbladder pathology recommend ultrasound. 2. Mild apparent transverse colonic wall thickening, may relate to nondistention. Correlate for colitis. Electronically signed by: Armando Dewitt DO (04/06/2019 11:33 PM) [facility] [place] DICTATED and SIGNED BY: ARMANDO DEWITT DO DATE: 04/06/[address] HEAD WO CONTRAST History: Altered mental status. History of cervical cancer. Comparison: None. Technique: Noncontrast CT imaging was performed of the head. Coronal reconstruction was performed. Exposure: One or more of the following individualized dose reduction techniques were utilized for this examination: 1. Automated exposure control 2. Adjustment of the mA and/or kV according to patient size 3. Use of iterative reconstruction technique. Findings: No intracranial hemorrhage. No mass effect. No hydrocephalus. Extra-axial spaces are unremarkable. Imaged orbits are unremarkable. Imaged paranasal sinuses and mastoid air cells are clear. Impression: 1. No acute intracranial abnormality. Electronically signed by: Armando Dewitt DO (04/06/2019 11:21 PM) [facility] [place] DICTATED and SIGNED BY: ARMANDO DEWITT DO DATE: 04/06/19 2321 ABDOMEN LTD History: Right upper quadrant pain. Comparison: CT abdomen and pelvis January 01, 2019. Technique: Transabdominal ultrasound images are obtained of the right upper quadrant. Findings: Visualized pancreas is unremarkable. Liver is normal in echogenicity. Right hepatic lobe measures 17.1 cm. Portal flow is hepatopedal. Large. Within the gallbladder. No pericholecystic fluid or gallbladder wall thickening. Common bile duct caliber is normal measuring 5 mm in diameter. The right kidney measures 11.2 x 4.9 x 4.1 cm in length and is without evidence of obstruction or stone. IVC is patent. IMPRESSION: 1. Cholelithiasis. 2. Otherwise, unremarkable abdominal ultrasound. Electronically signed by: Armando Dewitt DO (01/21/2019 4:54 PM) [facility] [place] DICTATED and SIGNED BY: ARMANDO DEWITT DO VTE Prophylaxis Ordered VTE Prophylaxis Devices: No VTE Pharmacological Prophylaxi: Contraindicated Assessment/Plan Assessment/Plan IMPRESSION: 1. Cholelithiasis. WITH RUQ PAIN 2. Otherwise, unremarkable abdominal ultrasound 3, Syncope after alcohol intake 04-06, hx binge drinking No acute intracranial abnormality. ON CT HEAD 4. RECENT DX CERVICAL CA WITH PELVIC PAIN 5. TOBACCO ABUSE 6. Cholelithiasis with suggestion of gallbladder wall thickening. If concern for gallbladder pathology recommend ultrasound. 7. Mild apparent transverse colonic wall thickening, may relate to nondistention. Correlate for colitis. plan admit tele GI CONSULT IV [facility] [facility] CONSULT ABD [facility] CONSULT NEUROCHECKS Q 4 HRS US GALLBLADDER 56 MIN PT EXAM, CHART REVIEW, > 50% OF time spent with exam, chart review, pt care coordination . JASMIN ROBINS MD Apr 07, 2019 11:11
--- NOTE | 2019-04-07 14:33 | EKG ---
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
[2019-04-07] MEDS: HYDROcodone/APAP 5/325MG 1 TAB TABLET PO PRN ×2 (15:35→21:51)
[2019-04-07] MEDS ORDERED: DOCUSATE SODIUM 100 MG CAPSULE. PO PRN (16:30)
[2019-04-07] MEDS ORDERED: ACETAMINOPHEN 325 MG TABLET. PO PRN (16:30)
[2019-04-07] MEDS ORDERED: cloNIDine HCL 0.1 MG TABLET PO PRN (16:30)
[2019-04-07] MEDS ORDERED: LORazepam 0.5 MG TABLET PO PRN (16:30)
[2019-04-07] MEDS ORDERED: MAG HYDROX/ALUMINUM HYD/SIMETH 30 ML ORAL.SUSP PO PRN (16:30)
[2019-04-07] MEDS ORDERED: 0.9 % SODIUM CHLORIDE 10 ML DISP.SYRIN. IV PRN (16:30)
[2019-04-07] MEDS ORDERED: guaiFENesin ORAL 200 MG/10 ML LIQUID. PO PRN (16:30)
[2019-04-07] MEDS ORDERED: ONDANSETRON PF 4 MG/2 ML VIAL. IV PRN (16:30)
[2019-04-07] MEDS ORDERED: MULTIVIT INFUSN,ADULT 4,VIT K 10 ML, THIAMINE INJ 100 MG, FOLIC ACID INJ 1 MG in IV NOR... IV ONE (17:00)
[2019-04-07] MEDS: IPRATRPIUM/ALBUTEROL 0.5/2.5MG 3 ML NEBU. NEB SCH (20:00)
--- NOTE | 2019-04-08 01:21 | RAD ---
PELVIS ULTRASOUND History: Pelvic pain. Comparison: None. Technique: Grayscale and color Doppler imaging of the pelvis was performed using transabdominal technique. Patient refused transvaginal imaging. Findings: The uterus measures 10.2 x 5.2 x 4.5 cm in length. Uterus has an unremarkable appearance. The endometrial stripe measures 7.4 mm, within normal limits. Bilateral ovaries not identified due to positioning and overlying bowel gas. IMPRESSION: 1. Unremarkable pelvic ultrasound. 2. Bilateral ovaries not identified. If persistent clinical concern transvaginal imaging can further assess. Electronically signed by: Derik Yanes DO (04/08/2019 1:18 AM) [facility]
--- NOTE | 2019-04-08 01:23 | RAD ---
ABDOMEN LTD History: Cholelithiasis. Comparison: CT April 06, 2019. Technique: Transabdominal ultrasound images are obtained of the right upper quadrant. Findings: Visualized pancreas is normal as visualized Liver is normal in echogenicity. Right hepatic lobe measures 15.7 cm. Portal flow is hepatopedal. Cholelithiasis. No gallbladder wall thickening. No pericholecystic fluid. Common bile duct caliber is normal measuring 4 mm in diameter. The right kidney measures 10.0 x 4.4 x 3.8 cm in length and is without evidence of obstruction or stone. Patent IVC. IMPRESSION: 1. Cholelithiasis. Electronically signed by: Derik Yanes DO (04/08/2019 1:20 AM) [facility]
--- NOTE | 2019-04-08 01:24 | RAD ---
DOPPLER CAROTID BILAT History: Syncope Technique: Duplex sonography of the cervical portion of both carotid arteries was performed. Real-time grayscale, color flow Doppler, and Doppler spectral waveform analysis is performed. PQRS Compliance Statement - Stenosis calculations for CT, MR and conventional angiography are based upon measurement of the distal ICA diameter in accordance with the NASCET methodology. Stenosis calculations for carotid ultrasound studies are derived from validated velocity criteria which are known to correlate with the NASCET methodology. Findings: Right side: Peak systolic flow velocity of the CCA is 98 cm/sec. Peak systolic flow velocity of the ICA is 133 cm/sec. The ICA/CCA ratio is 1.3. Peak end diastolic flow velocity of the ICA is 48 cm/sec. The peak systolic velocity of the ECA is 162 cm/sec. No significant plaque formation is identified. Left side: Peak systolic flow velocity of the CCA is 116 cm/sec. Peak systolic flow velocity of the ICA is 122 cm/sec. The ICA/CCA ratio is 1.0. Peak end diastolic flow velocity of the ICA is 44 cm/sec. Peak systolic flow velocity of the ECA is 112 cm/sec. No significant plaque formation is identified. Vertebral arteries: Bilateral vertebral arteries demonstrate antegrade flow. IMPRESSION: 1. No hemodynamically significant internal carotid artery stenosis is identified. Electronically signed by: Derik Yanes DO (04/08/2019 1:21 AM) [facility]
[2019-04-08] MEDS: HYDROcodone/APAP 5/325MG 1 TAB TABLET PO PRN ×2 (01:53→09:56)
[2019-04-08 03:17] VITALS: BP 120/82
[2019-04-08] MEDS: IPRATRPIUM/ALBUTEROL 0.5/2.5MG 3 ML NEBU. NEB SCH ×5 (04:00→16:00)
[2019-04-08 07:46] VITALS: BP 103/52
[2019-04-08] MEDS ORDERED: ENOXAPARIN 40 MG/0.4 ML SYRINGE. SQ SCH (09:00)
--- NOTE | 2019-04-08 09:44 | PDOC2 ---
GI CONSULT Reason For Consult: Possible colitis, gallstones HPI: HPI: 49 y/o female admitted through ER. 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 Last week, had a biopsy in the [facility] area w/ Dr. Dao for abnormal pap and h/o AUB - hasn't discussed report w/ him yet but has concern for cervical cancer (and I am able to see a bit of the pathology report on her phone - "dysplasia" mentioned). Lower abdominal cramping since biopsy last Monday, might have "overdone it" over the weekend. Had some pizza and three [employer] hard lemonades w/ friends yesterday. Then went to bed, got up to urinate, had diffuse abdominal pain, boyfriend saw her pass out and start vomiting on the floor. Currently feeling better - tolerating regular diet. No reflux/heartburn, dysphagia, chronic n/v, hematemesis, chronic abd pain, diarrhea, constipation, hematochezia, melena, or change in appetite. Since summer 2016 when had teeth pulled and got dentures, has lost 100 pounds - dentures do not fit well and a lot of times it's easier not to eat. No previous EGD or colonoscopy. No liver, pancreas, or PUD history. No regular NSAID use. 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 Allergies: Coded Allergies: Penicillins (Verified Allergy, Intermediate, 01/21/19) Medications: Current Medications Medications (Trade) Dose Ordered Sig/Loan Route PRN Reason Start Time Stop Time Status Last Admin Dose Admin Acetaminophen/ Hydrocodone Bitart (Lortab 5/325) 1 tab PRN Q4HRS PRN PO PAIN 04/07/19 15:30 04/08/19 01:53 Multivitamins 10 ml/Thiamine HCl 100 mg/Folic Acid 1 mg/Sodium Chloride 1,011.2 ml @ 125 mls/ hr 1X ONCE IV 04/07/19 17:00 04/08/19 01:05 DC 04/07/19 18:05 Imaging: Imaging: CXR 04/06 IMPRESSION: 1. No radiographic evidence for acute cardiopulmonary process. Head CT Impression: 1. No acute intracranial abnormality. CT A/P Impression: 1. Cholelithiasis with suggestion of gallbladder wall thickening. If concern for gallbladder pathology recommend ultrasound. 2. Mild apparent transverse colonic wall thickening, may relate to nondistention. Correlate for colitis. Carotid Doppler IMPRESSION: 1. No hemodynamically significant internal carotid artery stenosis is identified. Abd US Findings: Visualized pancreas is normal as visualized Liver is normal in echogenicity. Right hepatic lobe measures 15.7 cm. Portal flow is hepatopedal. Cholelithiasis. No gallbladder wall thickening. No pericholecystic fluid. Common bile duct caliber is normal measuring 4 mm in diameter. The right kidney measures 10.0 x 4.4 x 3.8 cm in length and is without evidence of obstruction or stone. Patent IVC. IMPRESSION: 1. Cholelithiasis. Pelv US IMPRESSION: 1. Unremarkable pelvic ultrasound. 2. Bilateral ovaries not identified. If persistent clinical concern tr ansvaginal imaging can further assess. PE: GEN: NAD HEENT: Atraumatic, PERRL LUNGS: CTAB anteriorly HEART: RRR ABD: NABS, S/ND, some discomfort epigastrium/RUQ - less to LUQ, suprapubic discomfort EXTREMITY: No edema SKIN: tattoos NEURO/PSYCH: A & O 3 A/P: A/P: Syncope, abd pain, vomiting H/o abnormal pap smear and menorrhagia - s/p biopsy last week, concern for cervical cancer Cholelithiasis - known CRC screen - none, average risk H/o meth/IVDU - reports sobriety for years Weight loss w/ ill-fitting dentures -- Symptoms resolved. Denies chronic GI issues. Denies frequent/heavy alcohol use. Multiple consultants asked to comment. Needs [facility] follow-up. LIZZIE NEGRETE Apr 08, 2019 09:44
[2019-04-08] MEDS: NICOTINE 21MG PATCH. TD SCH (09:54)
--- NOTE | 2019-04-08 10:57 | PDOC ---
PROGRESS NOTES History of Present Illness History of Present Illness Assessment/Plan Assessment/Plan IMPRESSION: 1. Cholelithiasis. WITH RUQ PAIN 2. Otherwise, unremarkable abdominal ultrasound 3, Syncope after alcohol intake 04-06, hx binge drinking No acute intracranial abnormality. ON CT HEAD 4. RECENT DX CERVICAL CA WITH PELVIC PAIN 5. TOBACCO ABUSE 6. Cholelithiasis with suggestion of gallbladder wall thickening. If concern for gallbladder pathology recommend ultrasound. 7. Mild apparent transverse colonic wall thickening, may relate to nondistention. Correlate for colitis. 8. H/o meth/ IV DRUG ABUSE - // sobriety for years plan admit tele GI CONSULT IV FLUIDS [employer]PER[employer]OR CONSULT ABD SONO NEUROLOGY CONSULT NEUROCHECKS Q 4 HRS US GALLBLADDER NOTED She may need elective cholecystectomy 36 MIN PT EXAM, CHART REVIEW, > 50% OF time spent with exam, chart review, pt care coordination Vitals Vitals Vital Signs Date Time Temp Pulse Resp B/P (MAP) Pulse Ox O2 Delivery O2 Flow Rate FiO2 04/08/19 09:56 97 Room Air 04/08/19 07:46 98.3 68 18 103/52 (69) 98.3 Physical Exam General: Alert, Oriented X3, Cooperative, No acute distress Heart: Regular rate Lungs: Clear Abdomen: Soft, Other (MILD RUQ PAIN) Extremities: No cyanosis Labs LABS EEG is a normal study for the awake, drowsy, and sleep states. No focal, lateralizing, specific epileptiform discharge or electrographic seizure is seen. PELVIS ULTRASOUND History: Pelvic pain. Comparison: None. Technique: Grayscale and color Doppler imaging of the pelvis was performed using transabdominal technique. Patient refused transvaginal imaging. Findings: The uterus measures 10.2 x 5.2 x 4.5 cm in length. Uterus has an unremarkable appearance. The endometrial stripe measures 7.4 mm, within normal limits. Bilateral ovaries not identified due to positioning and overlying bowel gas. IMPRESSION: 1. Unremarkable pelvic ultrasound. 2. Bilateral ovaries not identified. If persistent clinical concern transvaginal imaging can further assess. Electronically signed by: Armando Dewitt DO (04/08/2019 1:18 AM) [facility] DICTATED and SIGNED BY: ARMANDO DEWITT DO DATE: 04/08/19 0118 ABDOMEN LTD History: Cholelithiasis. Comparison: CT April 06, 2019. Technique: Transabdominal ultrasound images are obtained of the right upper quadrant. Findings: Visualized pancreas is normal as visualized Liver is normal in echogenicity. Right hepatic lobe measures 15.7 cm. Portal flow is hepatopedal. Cholelithiasis. No gallbladder wall thickening. No pericholecystic fluid. Common bile duct caliber is normal measuring 4 mm in diameter. The right kidney measures 10.0 x 4.4 x 3.8 cm in length and is without evidence of obstruction or stone. Patent IVC. IMPRESSION: 1. Cholelithiasis. Electronically signed by: Armando Dewitt DO (04/08/2019 1:20 AM) [facility] Assessment and Plan Assessmemt and Plan Problems Medical Problems: (1) Alcohol intoxication Status: Acute (2) Altered mental state Status: Acute (3) Lower abdominal pain Status: Acute (4) Vasovagal syncope Status: Acute Comment Review of Relevant I have reviewed the following items roberta (where applicable) has been applied. Labs Laboratory Tests Test 04/06/19 21:18 04/06/19 21:45 04/07/19 07:35 White Blood Count 9.2 x10^3/uL (4.0-11.0) 7.3 x10^3/uL (4.0-11.0) Red Blood Count 5.17 x10^6/uL (3.50-5.40) 4.53 x10^6/uL (3.50-5.40) Hemoglobin 16.1 g/dL (12.0-15.5) 14.2 g/dL (12.0-15.5) Hematocrit 47.2 % (36.0-47.0) 42.0 % (36.0-47.0) Mean Corpuscular Volume 91 fL (79-100) 93 fL (79-100) Mean Corpuscular Hemoglobin 31 pg (25-35) 31 pg (25-35) Mean Corpuscular Hemoglobin Concent 34 g/dL (31-37) 34 g/dL (31-37) Red Cell Distribution Width 13.7 % (11.5-14.5) 13.7 % (11.5-14.5) Platelet Count 426 x10^3/uL (140-400) 370 x10^3/uL (140-400) Neutrophils (%) (Auto) 49 % (31-73) 55 % (31-73) Lymphocytes (%) (Auto) 40 % (24-48) 31 % (24-48) Monocytes (%) (Auto) 8 % (0-9) 10 % (0-9) Eosinophils (%) (Auto) 2 % (0-3) 3 % (0-3) Basophils (%) (Auto) 1 % (0-3) 1 % (0-3) Neutrophils # (Auto) 4.5 x10^3/uL (1.8-7.7) 4.0 x10^3/uL (1.8-7.7) Lymphocytes # (Auto) 3.7 x10^3/uL (1.0-4.8) 2.3 x10^3/uL (1.0-4.8) Monocytes # (Auto) 0.7 x10^3/uL (0.0-1.1) 0.8 x10^3/uL (0.0-1.1) Eosinophils # (Auto) 0.2 x10^3/uL (0.0-0.7) 0.2 x10^3/uL (0.0-0.7) Basophils # (Auto) 0.1 x10^3/uL (0.0-0.2) 0.1 x10^3/uL (0.0-0.2) Sodium Level 144 mmol/L (136-145) 145 mmol/L (136-145) Potassium Level 3.5 mmol/L (3.5-5.1) 3.8 mmol/L (3.5-5.1) Chloride Level 103 mmol/L (98-107) 108 mmol/L (98-107) Carbon Dioxide Level 29 mmol/L (21-32) 29 mmol/L (21-32) Anion Gap 12 (6-14) 8 (6-14) Blood Urea Nitrogen 9 mg/dL (7-20) 8 mg/dL (7-20) Creatinine 0.8 mg/dL (0.6-1.0) 0.7 mg/dL (0.6-1.0) Estimated GFR (Cockcroft-Gault) 76.9 89.7 BUN/Creatinine Ratio 11 (6-20) Glucose Level 102 mg/dL (70-99) 84 mg/dL (70-99) Calcium Level 9.0 mg/dL (8.5-10.1) 8.5 mg/dL (8.5-10.1) Magnesium Level 2.1 mg/dL (1.8-2.4) Total Bilirubin 0.3 mg/dL (0.2-1.0) Aspartate Amino Transf (AST/SGOT) 32 U/L (15-37) Alanine Aminotransferase (ALT/SGPT) 61 U/L (14-59) Alkaline Phosphatase 44 U/L (46-116) Total Protein 8.0 g/dL (6.4-8.2) Albumin 3.9 g/dL (3.4-5.0) Albumin/Globulin Ratio 1.0 (1.0-1.7) Ethyl Alcohol Level 221 mg/dL (0-10) Urine Collection Type Unknown Urine Color Yellow Urine Clarity Clear Urine pH 5.5 Urine Specific [place] 1.010 Urine Protein Negative mg/dL (NEG-TRACE) Urine Glucose (UA) Negative mg/dL (NEG) Urine Ketones (Stick) Negative mg/dL (NEG) Urine Blood Moderate (NEG) Urine Nitrite Negative (NEG) Urine Bilirubin Negative (NEG) Urine Urobilinogen Dipstick 0.2 mg/dL (0.2 mg/dL) Urine Leukocyte Esterase Small (NEG) Urine RBC 11-20 /HPF (0-2) Urine WBC 5-10 /HPF (0-4) Urine Squamous Epithelial Cells Mod /LPF Urine Bacteria Few /HPF (0-FEW) Urine Mucus Mod /LPF Medications Current Medications Sodium Chloride 1,000 ml @ 1,000 mls/hr 1X ONCE IV Last administered on 04/06/19at 21:32; Start 04/06/19 at 21:30; Stop 04/06/19 at 22:29; Status DC Fentanyl Citrate (Fentanyl 2ml Vial) 50 mcg 1X ONCE IVP Last administered on 04/06/19at 23:34; Start 04/06/19 at 23:00; Stop 04/06/19 at 23:01; Status DC Iohexol (Omnipaque 300 Mg/ml) 75 ml 1X ONCE IV Last administered on 04/06/19at 23:00; Start 04/06/19 at 23:00; Stop 04/06/19 at 23:01; Status DC Info (CONTRAST GIVEN -- Rx MONITORING) 1 each PRN DAILY PRN MC SEE COMMENTS; Start 04/06/19 at 23:00; Stop 04/08/19 at 22:59 Ondansetron HCl (Zofran) 4 mg PRN Q8HRS PRN IV NAUSEA/VOMITING 1ST CHOICE; Start 04/06/19 at 23:45; Stop 04/07/19 at 23:44; Status DC Morphine Sulfate (Morphine Sulfate) 2 mg PRN Q2HR PRN IV SEVERE PAIN 7-10 Last administered on 04/07/19at 08:45; Start 04/06/19 at 23:45; Stop 04/07/19 at 23:44; Status DC Nicotine (Nicoderm Cq 21mg) 1 patch DAILY TD Last administered on 04/08/19at 09:54; Start 04/07/19 at 09:20 Acetaminophen/ Hydrocodone Bitart (Lortab 5/325) 1 tab PRN Q4HRS PRN PO PAIN Last administered on 04/08/19at 09:56; Start 04/07/19 at 15:30 Sodium Chloride (Normal Saline Flush) 3 ml QSHIFT PRN IV AFTER MEDS AND BLOOD DRAWS; Start 04/07/19 at 16:30 Multivitamins 10 ml/Thiamine HCl 100 mg/Folic Acid 1 mg/Sodium Chloride 1,011.2 ml @ 125 mls/ hr 1X ONCE IV Last administered on 04/07/19at 18:05; Start 04/07/19 at 17:00; Stop 04/08/19 at 01:05; Status DC Ondansetron HCl (Zofran) 4 mg PRN Q4HRS PRN IV NAUSEA/VOMITING; Start 04/07/19 at 16:30 Acetaminophen (Tylenol) 650 mg PRN Q4HRS PRN PO TEMP OVER 100.4F OR HEADACHE; Start 04/07/19 at 16:30 Al Hydroxide/Mg Hydroxide (Mylanta Plus Xs) 30 ml PRN DAILY PRN PO HEARTBURN / GAS; Start 04/07/19 at 16:30 Clonidine HCl (Catapres) 0.1 mg PRN Q6HRS PRN PO SBP>160 OR DBP>90; Start 04/07/19 at 16:30 Docusate Sodium (Colace) 100 mg PRN BID PRN PO CONSTIPATION; Start 04/07/19 at 16:30 Albuterol/ Ipratropium (Duoneb) 3 ml Q4HRS NEB ; Start 04/07/19 at 20:00 Guaifenesin (Robitussin) 200 mg PRN Q4HRS PRN PO COUGH; Start 04/07/19 at 16:30 Lorazepam (Ativan) 0.5 mg PRN Q4HRS PRN PO ANXIETY / AGITATION; Start 04/07/19 at 16:30 Enoxaparin Sodium (Lovenox 40mg Syringe) 40 mg DAILY SQ Last administered on 04/08/19at 09:55; Start 04/08/19 at 09:00 Active Scripts Active Vitals/I & O Vital Sign - Last 24 Hours 04/07/19 04/07/19 04/07/19 04/07/19 11:00 15:00 15:35 16:35 Temp 98.2 97.8 98.2 97.8 Pulse 85 85 Resp 16 05 15 19 B/P (MAP) 102/63 (76) 106/60 (75) Pulse Ox 97 95 O2 Delivery Room Air Room Air Room Air Room Air 04/07/19 04/07/19 04/07/19 04/07/19 19:05 20:00 21:41 21:51 Temp 98.5 98.5 Pulse 76 Resp 18 B/P (MAP) 102/59 (73) Pulse Ox 95 97 97 O2 Delivery Room Air Room Air Room Air Room Air 04/07/19 04/07/19 04/08/19 04/08/19 22:56 23:48 01:53 02:54 Temp 98.0 98.0 Pulse 69 Resp 16 16 16 14 B/P (MAP) 115/67 (83) Pulse Ox 97 97 97 97 O2 Delivery Room Air Room Air Room Air Room Air 04/08/19 04/08/19 04/08/19 04/08/19 03:17 07:46 08:00 09:56 Temp 98.1 98.3 98.1 98.3 Pulse 66 68 Resp 18 18 B/P (MAP) 120/82 (95) 103/52 (69) Pulse Ox 97 97 97 O2 Delivery Room Air Room Air Room Air Room Air Intake and Output 04/07/19 04/07/19 04/08/19 15:00 23:00 07:00 Intake Total 180 ml 330 ml 400 ml Balance 180 ml 330 ml 400 ml JASMIN ROBINS MD Apr 08, 2019 10:57
--- NOTE | 2019-04-08 11:50 | PDOC2 ---
CONSULT Date of Consult Date of Consult DATE: 04/08/19 TIME: 11:46 Reason for Consult Reason for Consult: Abdominal pain nausea vomiting syncopal episode Referring Physician Referring Physician: Sharda Identification/Chief Complaint Chief Complaint Syncopal episode passing out and then vomiting Source Source: Chart review, Patient History of Present Illness Reason for Visit: 49-year-old female is mated to the hospital after a syncopal episode with nausea vomiting recently should been diagnosed with cervical cancer and has been under a quite a bit of stress she states. This morning she sitting up in bed comfortably denies any nausea vomiting fevers chills or abdominal pain. On initial evaluation she underwent a CT scan of her abdomen and pelvis which showed a gallstone within her gallbladder no evidence of pericholecystic fluid or inflammation as well as she's undergone ultrasound of the gallbladder which again shows gallstones but no pericholecystic inflammation. 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)) Drugs: Other (remote h/o IVDU, additional h/o meth use - sober from both for years) Current Problem List Problem List Problems Medical Problems: (1) Alcohol intoxication Status: Acute (2) Altered mental state Status: Acute (3) Lower abdominal pain Status: Acute (4) Vasovagal syncope Status: Acute Current Medications Current Medications Current Medications Sodium Chloride 1,000 ml @ 1,000 mls/hr 1X ONCE IV Last administered on 04/06/19at 21:32; Start 04/06/19 at 21:30; Stop 04/06/19 at 22:29; Status DC Fentanyl Citrate (Fentanyl 2ml Vial) 50 mcg 1X ONCE IVP Last administered on 04/06/19at 23:34; Start 04/06/19 at 23:00; Stop 04/06/19 at 23:01; Status DC Iohexol (Omnipaque 300 Mg/ml) 75 ml 1X ONCE IV Last administered on 04/06/19at 23:00; Start 04/06/19 at 23:00; Stop 04/06/19 at 23:01; Status DC Info (CONTRAST GIVEN -- Rx MONITORING) 1 each PRN DAILY PRN MC SEE COMMENTS; Start 04/06/19 at 23:00; Stop 04/08/19 at 22:59 Ondansetron HCl (Zofran) 4 mg PRN Q8HRS PRN IV NAUSEA/VOMITING 1ST CHOICE; Start 04/06/19 at 23:45; Stop 04/07/19 at 23:44; Status DC Morphine Sulfate (Morphine Sulfate) 2 mg PRN Q2HR PRN IV SEVERE PAIN 7-10 Last administered on 04/07/19at 08:45; Start 04/06/19 at 23:45; Stop 04/07/19 at 23:44; Status DC Nicotine (Nicoderm Cq 21mg) 1 patch DAILY TD Last administered on 04/08/19at 09:54; Start 04/07/19 at 09:20 Acetaminophen/ Hydrocodone Bitart (Lortab 5/325) 1 tab PRN Q4HRS PRN PO PAIN Last administered on 04/08/19at 09:56; Start 04/07/19 at 15:30 Sodium Chloride (Normal Saline Flush) 3 ml QSHIFT PRN IV AFTER MEDS AND BLOOD DRAWS; Start 04/07/19 at 16:30 Multivitamins 10 ml/Thiamine HCl 100 mg/Folic Acid 1 mg/Sodium Chloride 1,011.2 ml @ 125 mls/ hr 1X ONCE IV Last administered on 04/07/19at 18:05; Start 04/07/19 at 17:00; Stop 04/08/19 at 01:05; Status DC Ondansetron HCl (Zofran) 4 mg PRN Q4HRS PRN IV NAUSEA/VOMITING; Start 04/07/19 at 16:30 Acetaminophen (Tylenol) 650 mg PRN Q4HRS PRN PO TEMP OVER 100.4F OR HEADACHE; Start 04/07/19 at 16:30 Al Hydroxide/Mg Hydroxide (Mylanta Plus Xs) 30 ml PRN DAILY PRN PO HEARTBURN / GAS; Start 04/07/19 at 16:30 Clonidine HCl (Catapres) 0.1 mg PRN Q6HRS PRN PO SBP>160 OR DBP>90; Start 04/07/19 at 16:30 Docusate Sodium (Colace) 100 mg PRN BID PRN PO CONSTIPATION; Start 04/07/19 at 16:30 Albuterol/ Ipratropium (Duoneb) 3 ml Q4HRS NEB ; Start 04/07/19 at 20:00 Guaifenesin (Robitussin) 200 mg PRN Q4HRS PRN PO COUGH; Start 04/07/19 at 16:30 Lorazepam (Ativan) 0.5 mg PRN Q4HRS PRN PO ANXIETY / AGITATION; Start 04/07/19 at 16:30 Enoxaparin Sodium (Lovenox 40mg Syringe) 40 mg DAILY SQ Last administered on 04/08/19at 09:55; Start 04/08/19 at 09:00 Active Scripts Active Allergies Allergies: Coded Allergies: Penicillins (Verified Allergy, Intermediate, 01/21/19) Physical Exam General: Alert, Oriented X3, Cooperative, No acute distress HEENT: EOMI Lungs: Clear to auscultation, Normal air movement Heart: Regular rate, No murmurs Abdomen: Normal bowel sounds, Soft, No tenderness Extremities: No edema Skin: No significant lesion Neuro: Normal speech Psych/Mental Status: Mental status NL Vitals VITALS Vital Signs Date Time Temp Pulse Resp B/P (MAP) Pulse Ox O2 Delivery O2 Flow Rate FiO2 04/08/19 09:56 97 Room Air 04/08/19 07:46 98.3 68 18 103/52 (69) 98.3 Labs Labs Laboratory Tests Test 04/06/19 21:18 04/06/19 21:45 04/07/19 07:35 White Blood Count 9.2 x10^3/uL (4.0-11.0) 7.3 x10^3/uL (4.0-11.0) Red Blood Count 5.17 x10^6/uL (3.50-5.40) 4.53 x10^6/uL (3.50-5.40) Hemoglobin 16.1 g/dL (12.0-15.5) 14.2 g/dL (12.0-15.5) Hematocrit 47.2 % (36.0-47.0) 42.0 % (36.0-47.0) Mean Corpuscular Volume 91 fL (79-100) 93 fL (79-100) Mean Corpuscular Hemoglobin 31 pg (25-35) 31 pg (25-35) Mean Corpuscular Hemoglobin Concent 34 g/dL (31-37) 34 g/dL (31-37) Red Cell Distribution Width 13.7 % (11.5-14.5) 13.7 % (11.5-14.5) Platelet Count 426 x10^3/uL (140-400) 370 x10^3/uL (140-400) Neutrophils (%) (Auto) 49 % (31-73) 55 % (31-73) Lymphocytes (%) (Auto) 40 % (24-48) 31 % (24-48) Monocytes (%) (Auto) 8 % (0-9) 10 % (0-9) Eosinophils (%) (Auto) 2 % (0-3) 3 % (0-3) Basophils (%) (Auto) 1 % (0-3) 1 % (0-3) Neutrophils # (Auto) 4.5 x10^3/uL (1.8-7.7) 4.0 x10^3/uL (1.8-7.7) Lymphocytes # (Auto) 3.7 x10^3/uL (1.0-4.8) 2.3 x10^3/uL (1.0-4.8) Monocytes # (Auto) 0.7 x10^3/uL (0.0-1.1) 0.8 x10^3/uL (0.0-1.1) Eosinophils # (Auto) 0.2 x10^3/uL (0.0-0.7) 0.2 x10^3/uL (0.0-0.7) Basophils # (Auto) 0.1 x10^3/uL (0.0-0.2) 0.1 x10^3/uL (0.0-0.2) Sodium Level 144 mmol/L (136-145) 145 mmol/L (136-145) Potassium Level 3.5 mmol/L (3.5-5.1) 3.8 mmol/L (3.5-5.1) Chloride Level 103 mmol/L (98-107) 108 mmol/L (98-107) Carbon Dioxide Level 29 mmol/L (21-32) 29 mmol/L (21-32) Anion Gap 12 (6-14) 8 (6-14) Blood Urea Nitrogen 9 mg/dL (7-20) 8 mg/dL (7-20) Creatinine 0.8 mg/dL (0.6-1.0) 0.7 mg/dL (0.6-1.0) Estimated GFR (Cockcroft-Gault) 76.9 89.7 BUN/Creatinine Ratio 11 (6-20) Glucose Level 102 mg/dL (70-99) 84 mg/dL (70-99) Calcium Level 9.0 mg/dL (8.5-10.1) 8.5 mg/dL (8.5-10.1) Magnesium Level 2.1 mg/dL (1.8-2.4) Total Bilirubin 0.3 mg/dL (0.2-1.0) Aspartate Amino Transf (AST/SGOT) 32 U/L (15-37) Alanine Aminotransferase (ALT/SGPT) 61 U/L (14-59) Alkaline Phosphatase 44 U/L (46-116) Total Protein 8.0 g/dL (6.4-8.2) Albumin 3.9 g/dL (3.4-5.0) Albumin/Globulin Ratio 1.0 (1.0-1.7) Ethyl Alcohol Level 221 mg/dL (0-10) Urine Collection Type Unknown Urine Color Yellow Urine Clarity Clear Urine pH 5.5 Urine Specific [place] 1.010 Urine Protein Negative mg/dL (NEG-TRACE) Urine Glucose (UA) Negative mg/dL (NEG) Urine Ketones (Stick) Negative mg/dL (NEG) Urine Blood Moderate (NEG) Urine Nitrite Negative (NEG) Urine Bilirubin Negative (NEG) Urine Urobilinogen Dipstick 0.2 mg/dL (0.2 mg/dL) Urine Leukocyte Esterase Small (NEG) Urine RBC 11-20 /HPF (0-2) Urine WBC 5-10 /HPF (0-4) Urine Squamous Epithelial Cells Mod /LPF Urine Bacteria Few /HPF (0-FEW) Urine Mucus Mod /LPF Images Images Evangelina CT scans as per history of present illness Assessment/Plan Assessment/Plan Cholelithiasis currently asymptomatic In light of her other medical issues which I feel are more pressing at this time would defer any intervention for her gallbladder until those and then resolved Discussed gallbladder symptoms and stress to her that at some point she may need elective cholecystectomy No surgical plans at this time JASMIN FLORES MD Apr 08, 2019 11:50
[2019-04-08 11:54] VITALS: BP 101/74
--- NOTE | 2019-04-08 12:59 | PDOC2 ---
CONSULT Date of Consult Date of Consult DATE: 04/08/19 TIME: 12:49 Reason for Consult Reason for Consult: abd pain Referring Physician Referring Physician: Dr. Trejo Identification/Chief Complaint Chief Complaint abd pain and syncopal episode Source Source: Chart review, Patient History of Present Illness Reason for Visit: 49 y/o A3 presented to ED via ambulance due to abd pain and syncope. Pt. reports high level stress related to cervical biopsy and endometrial biopsy with potential cancer risk. 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 Pelvic sono was negative. Abd sono indicated gall stones. 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) Current Problem List Problem List Problems Medical Problems: (1) Alcohol intoxication Status: Acute (2) Altered mental state Status: Acute (3) Lower abdominal pain Status: Acute (4) Vasovagal syncope Status: Acute Current Medications Current Medications Current Medications Sodium Chloride 1,000 ml @ 1,000 mls/hr 1X ONCE IV Last administered on 04/06/19at 21:32; Start 04/06/19 at 21:30; Stop 04/06/19 at 22:29; Status DC Fentanyl Citrate (Fentanyl 2ml Vial) 50 mcg 1X ONCE IVP Last administered on 04/06/19at 23:34; Start 04/06/19 at 23:00; Stop 04/06/19 at 23:01; Status DC Iohexol (Omnipaque 300 Mg/ml) 75 ml 1X ONCE IV Last administered on 04/06/19at 23:00; Start 04/06/19 at 23:00; Stop 04/06/19 at 23:01; Status DC Info (CONTRAST GIVEN -- Rx MONITORING) 1 each PRN DAILY PRN MC SEE COMMENTS; Start 04/06/19 at 23:00; Stop 04/08/19 at 22:59 Ondansetron HCl (Zofran) 4 mg PRN Q8HRS PRN IV NAUSEA/VOMITING 1ST CHOICE; Start 04/06/19 at 23:45; Stop 04/07/19 at 23:44; Status DC Morphine Sulfate (Morphine Sulfate) 2 mg PRN Q2HR PRN IV SEVERE PAIN 7-10 Last administered on 04/07/19at 08:45; Start 04/06/19 at 23:45; Stop 04/07/19 at 23:44; Status DC Nicotine (Nicoderm Cq 21mg) 1 patch DAILY TD Last administered on 04/08/19at 09:54; Start 04/07/19 at 09:20 Acetaminophen/ Hydrocodone Bitart (Lortab 5/325) 1 tab PRN Q4HRS PRN PO PAIN Last administered on 04/08/19at 09:56; Start 04/07/19 at 15:30 Sodium Chloride (Normal Saline Flush) 3 ml QSHIFT PRN IV AFTER MEDS AND BLOOD DRAWS; Start 04/07/19 at 16:30 Multivitamins 10 ml/Thiamine HCl 100 mg/Folic Acid 1 mg/Sodium Chloride 1,011.2 ml @ 125 mls/ hr 1X ONCE IV Last administered on 04/07/19at 18:05; Start 04/07/19 at 17:00; Stop 04/08/19 at 01:05; Status DC Ondansetron HCl (Zofran) 4 mg PRN Q4HRS PRN IV NAUSEA/VOMITING; Start 04/07/19 at 16:30 Acetaminophen (Tylenol) 650 mg PRN Q4HRS PRN PO TEMP OVER 100.4F OR HEADACHE; Start 04/07/19 at 16:30 Al Hydroxide/Mg Hydroxide (Mylanta Plus Xs) 30 ml PRN DAILY PRN PO HEARTBURN / GAS; Start 04/07/19 at 16:30 Clonidine HCl (Catapres) 0.1 mg PRN Q6HRS PRN PO SBP>160 OR DBP>90; Start 04/07/19 at 16:30 Docusate Sodium (Colace) 100 mg PRN BID PRN PO CONSTIPATION; Start 04/07/19 at 16:30 Albuterol/ Ipratropium (Duoneb) 3 ml Q4HRS NEB ; Start 04/07/19 at 20:00 Guaifenesin (Robitussin) 200 mg PRN Q4HRS PRN PO COUGH; Start 04/07/19 at 16:30 Lorazepam (Ativan) 0.5 mg PRN Q4HRS PRN PO ANXIETY / AGITATION; Start 04/07/19 at 16:30 Enoxaparin Sodium (Lovenox 40mg Syringe) 40 mg DAILY SQ Last administered on 04/08/19at 09:55; Start 04/08/19 at 09:00 Active Scripts Active Allergies Allergies: Coded Allergies: Penicillins (Verified Allergy, Intermediate, 01/21/19) ROS General: YES: Fatigue; No: Chills, Night Sweats, Malaise, Appetite, Other PSYCHOLOGICAL ROS: YES: Anxiety, Concentration difficultie; No: Behavioral Disorder, Decreased libido, Depression, Disorientation, Hallucinations, Hostility, Irritablity, Memory difficulties, Mood Swings, Obsessive thoughts, Physical abuse, Sexual abuse, Sleep disturbances, Suicidal ideation, Other Eyes: No Blurry vision, No Decreased vision, No Double vision, No Dry eyes, No Excessive tearing, No Eye Pain, No Itchy Eyes, No Loss of vision, No Photophobia, No Scotomata, No Uses contacts, No Uses glasses, No Other HEENT: No: Heacaches, Visual Changes, Hearing change, Nasal congestion, Nasal discharge, Oral lesions, Sinus pain, Sore Throat, Epistaxis, Sneezing, Snoring, Tinnitus, Vertigo, Vocal changes, Other ALLERGY AND IMMUNOLOGY: No: Hives, Insect Bite Sensitivity, Itchy/Watery Eyes, Nasal Congestion, Post Nasal Drip, Seasonal Allergies, Other Hematological and Lymphatic: No: Bleeding Problems, Blood Clots, Blood Transfusions, Brusing, Night Sweats, Pallor, Swollen Lymph Nodes, Other ENDOCRINE: No: Breast Changes, Galactorrhea, Hair Pattern Changes, Hot Flashes, Malaise/lethargy, Mood Swings, Palpitations, Polydipsia/polyuria, Skin Changes, Temperature Intolerance, Unexpected Weight Changes, Other Breast: No New/Changing Breast Lumps, No Nipple changes, No Nipple discharge, No Other Respiratory: No: Cough, Hemoptysis, Orthopnea, Pleuritic Pain, Shortness of breath, SOB with excertion, Sputum Changes, Stridor, Tachypnea, Wheezing, Other Cardiovascular: No Chest Pain, No Palpitations, No Orthopnea, No Paroxysmal Noc. Dyspnea, No Edema, No Lt Headedness, No Other Genitourinary: No Dysuria, No Frequency, No Incontinence, No Hematuria, No Retention, No Discharge, No Urgency, No Pain, No Flank Pain, No Other, No , No , No , No , No , No , No Neurological: No Behavorial Changes, No Bowel/Bladder ControlChng, No Confusion, No Dizziness, No Gait Disturbance, No Headaches, No Impaired Coord/balance, No Memory Loss, No Numbness/Tingling, No Seizures, No Speech Problems, No Tremors, No Visual Changes, No Weakness, No Other Physical Exam General: Alert, Oriented X3, Cooperative HEENT: Atraumatic Lungs: Clear to auscultation Heart: Regular rate Abdomen: Normal bowel sounds, Soft, No tenderness Psych/Mental Status: Mental status NL Vitals VITALS Vital Signs Date Time Temp Pulse Resp B/P (MAP) Pulse Ox O2 Delivery O2 Flow Rate FiO2 04/08/19 12:42 99 Room Air 04/08/19 11:54 97.5 57 18 101/74 (83) 97.5 Labs Labs Laboratory Tests Test 04/06/19 21:18 04/06/19 21:45 04/07/19 07:35 White Blood Count 9.2 x10^3/uL (4.0-11.0) 7.3 x10^3/uL (4.0-11.0) Red Blood Count 5.17 x10^6/uL (3.50-5.40) 4.53 x10^6/uL (3.50-5.40) Hemoglobin 16.1 g/dL (12.0-15.5) 14.2 g/dL (12.0-15.5) Hematocrit 47.2 % (36.0-47.0) 42.0 % (36.0-47.0) Mean Corpuscular Volume 91 fL (79-100) 93 fL (79-100) Mean Corpuscular Hemoglobin 31 pg (25-35) 31 pg (25-35) Mean Corpuscular Hemoglobin Concent 34 g/dL (31-37) 34 g/dL (31-37) Red Cell Distribution Width 13.7 % (11.5-14.5) 13.7 % (11.5-14.5) Platelet Count 426 x10^3/uL (140-400) 370 x10^3/uL (140-400) Neutrophils (%) (Auto) 49 % (31-73) 55 % (31-73) Lymphocytes (%) (Auto) 40 % (24-48) 31 % (24-48) Monocytes (%) (Auto) 8 % (0-9) 10 % (0-9) Eosinophils (%) (Auto) 2 % (0-3) 3 % (0-3) Basophils (%) (Auto) 1 % (0-3) 1 % (0-3) Neutrophils # (Auto) 4.5 x10^3/uL (1.8-7.7) 4.0 x10^3/uL (1.8-7.7) Lymphocytes # (Auto) 3.7 x10^3/uL (1.0-4.8) 2.3 x10^3/uL (1.0-4.8) Monocytes # (Auto) 0.7 x10^3/uL (0.0-1.1) 0.8 x10^3/uL (0.0-1.1) Eosinophils # (Auto) 0.2 x10^3/uL (0.0-0.7) 0.2 x10^3/uL (0.0-0.7) Basophils # (Auto) 0.1 x10^3/uL (0.0-0.2) 0.1 x10^3/uL (0.0-0.2) Sodium Level 144 mmol/L (136-145) 145 mmol/L (136-145) Potassium Level 3.5 mmol/L (3.5-5.1) 3.8 mmol/L (3.5-5.1) Chloride Level 103 mmol/L (98-107) 108 mmol/L (98-107) Carbon Dioxide Level 29 mmol/L (21-32) 29 mmol/L (21-32) Anion Gap 12 (6-14) 8 (6-14) Blood Urea Nitrogen 9 mg/dL (7-20) 8 mg/dL (7-20) Creatinine 0.8 mg/dL (0.6-1.0) 0.7 mg/dL (0.6-1.0) Estimated GFR (Cockcroft-Gault) 76.9 89.7 BUN/Creatinine Ratio 11 (6-20) Glucose Level 102 mg/dL (70-99) 84 mg/dL (70-99) Calcium Level 9.0 mg/dL (8.5-10.1) 8.5 mg/dL (8.5-10.1) Magnesium Level 2.1 mg/dL (1.8-2.4) Total Bilirubin 0.3 mg/dL (0.2-1.0) Aspartate Amino Transf (AST/SGOT) 32 U/L (15-37) Alanine Aminotransferase (ALT/SGPT) 61 U/L (14-59) Alkaline Phosphatase 44 U/L (46-116) Total Protein 8.0 g/dL (6.4-8.2) Albumin 3.9 g/dL (3.4-5.0) Albumin/Globulin Ratio 1.0 (1.0-1.7) Ethyl Alcohol Level 221 mg/dL (0-10) Urine Collection Type Unknown Urine Color Yellow Urine Clarity Clear Urine pH 5.5 Urine Specific [place] 1.010 Urine Protein Negative mg/dL (NEG-TRACE) Urine Glucose (UA) Negative mg/dL (NEG) Urine Ketones (Stick) Negative mg/dL (NEG) Urine Blood Moderate (NEG) Urine Nitrite Negative (NEG) Urine Bilirubin Negative (NEG) Urine Urobilinogen Dipstick 0.2 mg/dL (0.2 mg/dL) Urine Leukocyte Esterase Small (NEG) Urine RBC 11-20 /HPF (0-2) Urine WBC 5-10 /HPF (0-4) Urine Squamous Epithelial Cells Mod /LPF Urine Bacteria Few /HPF (0-FEW) Urine Mucus Mod /LPF Assessment/Plan Assessment/Plan A: Gallstones Cervical Dysplasia P: Continue current care. Pt. will f/u primary production recorder Dr. Dao for results and treatment cervical. Thank you for consult. NICOLE GUAJARDO Jr, MD Apr 08, 2019 12:59
--- NOTE | 2019-04-08 15:18 | PDOC2 ---
NEUROLOGY CONSULT Date of Admission Date of Admission DATE: 04/08/19 TIME: 15:04 Reason for Consult Reason for Consult: IMPRESSION: Toxic encephalopathy. Metabolic encephalopathy. Confusion. Alcohol intoxication, level 221. UTI. COPD. Cervical cancer. RECOMMENDATIONS/PLAN: Detoxication treatment. Vit B1 100 mg daily. EEG. Treat medical diseases. Patient education for alcohol abstinence. HISTORY OF THE PRESENT ILLNESS: This is a 49-year-old female patient who was brought by EMS to [facility] ER [facility] on 04/06/19 due to mental status changes, confusion and syncopal sells. She was reportedly having syncopal episode at home. She stated that she had 3 beers drinks beforehand and then was getting sick and vomiting and she had a syncopal event. She then was noted confused. She denies headache. Patient stated that she had been under a great deal of stress recently stating that she was just diagnosed with cervical cancer. PAST MEDICAL HISTORY: Cholelithiasis PAST SURGERY HISTORY: Tonsillectomy, adenoidectomy, D&C, tubal ligation ALLERGY: Coded Allergies: Penicillins (Verified Allergy, Intermediate, 01/21/19) MEDICATIONS: Refer to [facility] FAMILY HISTORY: Cancer (father - lymphoma, mother - cervical) SOCIAL HISTORY: Lives at home. 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 Denies denies current illicit drug use. 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 She smokes 1 pack per day. REVIEW OF SYSTEMS: GEN: Denies fevers, chills, sweats HEENT: Denies blurred vision, sore throat CV: Denies chest pain RESP: Denies shortness of air, cough GI: Per HPI : Denies hematuria, dysuria ENDO: +weight loss NEURO: +syncope MSK: Denies weakness, joint pain/swelling SKIN: Denies jaundice, pruritus one. Lives in residential. Denies smoking, drinking, and illicit drug use. He She smokes pack of cigarettes a day for years. He She drinks OZ alcohol a day for years. PHYSICAL EXAMINATION: General appearance is in no acute distress. HEENT: Normocephalic and nontraumatic. Eyes, nose, ears, and throat are unremarkable. Neck is supple. No lymphadenopathy. No crepitus. Cardiovascular: S1, S2, regular rate and rhythm. Pulmonary: Clear to auscultation bilaterally. Abdomen: Bowel sounds are positive. Extremities: No rash, lesions, or edema. No restriction of range of motion NEUROLOGICAL EXAMINATION: Alert Oriented to time, place and person. PERRL. EOMI. CN: no focal findings. Muscle tone: within normal. Muscle strength: 5 DTR: 2 Plantar reflex: Flexor response bilaterally Gait: not examined in bed. Sensory exam: no abnormal findings. No cerebellar signs elicited. F-T-N test accurate. Current Medications Current Medications Current Medications Sodium Chloride 1,000 ml @ 1,000 mls/hr 1X ONCE IV Last administered on 04/06/19at 21:32; Start 04/06/19 at 21:30; Stop 04/06/19 at 22:29; Status DC Fentanyl Citrate (Fentanyl 2ml Vial) 50 mcg 1X ONCE IVP Last administered on 04/06/19 23:34; Start 04/06/19 at 23:00; Stop 04/06/19 at 23:01; Status DC Iohexol (Omnipaque 300 Mg/ml) 75 ml 1X ONCE IV Last administered on 04/06/19at 23:00; Start 04/06/19 at 23:00; Stop 04/06/19 at 23:01; Status DC Info (CONTRAST GIVEN -- Rx MONITORING) 1 each PRN DAILY PRN MC SEE COMMENTS; Start 04/06/19 at 23:00; Stop 04/08/19 at 22:59 Ondansetron HCl (Zofran) 4 mg PRN Q8HRS PRN IV NAUSEA/VOMITING 1ST CHOICE; Start 04/06/19 at 23:45; Stop 04/07/19 at 23:44; Status DC Morphine Sulfate (Morphine Sulfate) 2 mg PRN Q2HR PRN IV SEVERE PAIN 7-10 Last administered on 04/07/19at 08:45; Start 04/06/19 at 23:45; Stop 04/07/19 at 23:44; Status DC Nicotine (Nicoderm Cq 21mg) 1 patch DAILY TD Last administered on 04/08/19at 09:54; Start 04/07/19 at 09:20 Acetaminophen/ Hydrocodone Bitart (Lortab 5/325) 1 tab PRN Q4HRS PRN PO PAIN Last administered on 04/08/19 09:56; Start 04/07/19 at 15:30 Sodium Chloride (Normal Saline Flush) 3 ml QSHIFT PRN IV AFTER MEDS AND BLOOD DRAWS; Start 04/07/19 at 16:30 Multivitamins 10 ml/Thiamine HCl 100 mg/Folic Acid 1 mg/Sodium Chloride 1,011.2 ml @ 125 mls/ hr 1X ONCE IV Last administered on 04/07/19at 18:05; Start 04/07/19 at 17:00; Stop 04/08/19 at 01:05; Status DC Ondansetron HCl (Zofran) 4 mg PRN Q4HRS PRN IV NAUSEA/VOMITING; Start 04/07/19 at 16:30 Acetaminophen (Tylenol) 650 mg PRN Q4HRS PRN PO TEMP OVER 100.4F OR HEADACHE; Start 04/07/19 at 16:30 Al Hydroxide/Mg Hydroxide (Mylanta Plus Xs) 30 ml PRN DAILY PRN PO HEARTBURN / GAS; Start 04/07/19 at 16:30 Clonidine HCl (Catapres) 0.1 mg PRN Q6HRS PRN PO SBP>160 OR DBP>90; Start 04/07/19 at 16:30 Docusate Sodium (Colace) 100 mg PRN BID PRN PO CONSTIPATION; Start 04/07/19 at 16:30 Albuterol/ Ipratropium (Duoneb) 3 ml Q4HRS NEB ; Start 04/07/19 at 20:00 Guaifenesin (Robitussin) 200 mg PRN Q4HRS PRN PO COUGH; Start 04/07/19 at 16:30 Lorazepam (Ativan) 0.5 mg PRN Q4HRS PRN PO ANXIETY / AGITATION; Start 04/07/19 at 16:30 Enoxaparin Sodium (Lovenox 40mg Syringe) 40 mg DAILY SQ Last administered on 04/08/19at 09:55; Start 04/08/19 at 09:00 Active Scripts Active Allergies Allergies: Allergies Coded Allergies Type Severity Reaction Last Updated Verified Penicillins Allergy Intermediate 01/21/19 Yes ROS Review of System The patient denies any associated fevers, chills, headache, ear pain, rhinorrhea, sore throat, stiff neck, productive cough, chest pain, shortness of breath, back or flank pain, abdominal pain, nausea, vomiting, diarrhea, constipa tion, dysuria, rash, numbness, weakness, tingling, incontinence, difficulty ambulating, or diaphoresis. Physical Exam Physical Exam General: Well developed, well nourished, no acute distress, well appearing HEENT: Pupils equally round and reactive to light, EOMI, no discharge, normal conjunctiva Neck: Supple, no nuchal rigidity, no JVD, trachea midline, no tenderness Cardiac: RRR, no murmurs, no gallops, no rubs Chest/Lungs: CTAB, no wheeze, no rhonchi, no crackles Abdomen: soft, non-distended, no guarding, no peritoneal signs, non-tender Back: No tenderness Extremities: no edema, pulses intact, non-tender,capillary refill <3 sec bilateral upper and lower extremities, Neuro: Alert and oriented x 4, no focal deficits, normal speech Vitals Vitals: Vital Signs Date Time Temp Pulse Resp B/P (MAP) Pulse Ox O2 Delivery O2 Flow Rate FiO2 04/08/19 12:42 99 Room Air 04/08/19 11:54 97.5 57 18 101/74 (83) 97.5 Labs Labs Laboratory Tests Test 04/06/19 21:18 04/06/19 21:45 04/07/19 07:35 White Blood Count 9.2 x10^3/uL (4.0-11.0) 7.3 x10^3/uL (4.0-11.0) Red Blood Count 5.17 x10^6/uL (3.50-5.40) 4.53 x10^6/uL (3.50-5.40) Hemoglobin 16.1 g/dL (12.0-15.5) 14.2 g/dL (12.0-15.5) Hematocrit 47.2 % (36.0-47.0) 42.0 % (36.0-47.0) Mean Corpuscular Volume 91 fL (79-100) 93 fL (79-100) Mean Corpuscular Hemoglobin 31 pg (25-35) 31 pg (25-35) Mean Corpuscular Hemoglobin Concent 34 g/dL (31-37) 34 g/dL (31-37) Red Cell Distribution Width 13.7 % (11.5-14.5) 13.7 % (11.5-14.5) Platelet Count 426 x10^3/uL (140-400) 370 x10^3/uL (140-400) Neutrophils (%) (Auto) 49 % (31-73) 55 % (31-73) Lymphocytes (%) (Auto) 40 % (24-48) 31 % (24-48) Monocytes (%) (Auto) 8 % (0-9) 10 % (0-9) Eosinophils (%) (Auto) 2 % (0-3) 3 % (0-3) Basophils (%) (Auto) 1 % (0-3) 1 % (0-3) Neutrophils # (Auto) 4.5 x10^3/uL (1.8-7.7) 4.0 x10^3/uL (1.8-7.7) Lymphocytes # (Auto) 3.7 x10^3/uL (1.0-4.8) 2.3 x10^3/uL (1.0-4.8) Monocytes # (Auto) 0.7 x10^3/uL (0.0-1.1) 0.8 x10^3/uL (0.0-1.1) Eosinophils # (Auto) 0.2 x10^3/uL (0.0-0.7) 0.2 x10^3/uL (0.0-0.7) Basophils # (Auto) 0.1 x10^3/uL (0.0-0.2) 0.1 x10^3/uL (0.0-0.2) Sodium Level 144 mmol/L (136-145) 145 mmol/L (136-145) Potassium Level 3.5 mmol/L (3.5-5.1) 3.8 mmol/L (3.5-5.1) Chloride Level 103 mmol/L (98-107) 108 mmol/L (98-107) Carbon Dioxide Level 29 mmol/L (21-32) 29 mmol/L (21-32) Anion Gap 12 (6-14) 8 (6-14) Blood Urea Nitrogen 9 mg/dL (7-20) 8 mg/dL (7-20) Creatinine 0.8 mg/dL (0.6-1.0) 0.7 mg/dL (0.6-1.0) Estimated GFR (Cockcroft-Gault) 76.9 89.7 BUN/Creatinine Ratio 11 (6-20) Glucose Level 102 mg/dL (70-99) 84 mg/dL (70-99) Calcium Level 9.0 mg/dL (8.5-10.1) 8.5 mg/dL (8.5-10.1) Magnesium Level 2.1 mg/dL (1.8-2.4) Total Bilirubin 0.3 mg/dL (0.2-1.0) Aspartate Amino Transf (AST/SGOT) 32 U/L (15-37) Alanine Aminotransferase (ALT/SGPT) 61 U/L (14-59) Alkaline Phosphatase 44 U/L (46-116) Total Protein 8.0 g/dL (6.4-8.2) Albumin 3.9 g/dL (3.4-5.0) Albumin/Globulin Ratio 1.0 (1.0-1.7) Ethyl Alcohol Level 221 mg/dL (0-10) Urine Collection Type Unknown Urine Color Yellow Urine Clarity Clear Urine pH 5.5 Urine Specific [place] 1.010 Urine Protein Negative mg/dL (NEG-TRACE) Urine Glucose (UA) Negative mg/dL (NEG) Urine Ketones (Stick) Negative mg/dL (NEG) Urine Blood Moderate (NEG) Urine Nitrite Negative (NEG) Urine Bilirubin Negative (NEG) Urine Urobilinogen Dipstick 0.2 mg/dL (0.2 mg/dL) Urine Leukocyte Esterase Small (NEG) Urine RBC 11-20 /HPF (0-2) Urine WBC 5-10 /HPF (0-4) Urine Squamous Epithelial Cells Mod /LPF Urine Bacteria Few /HPF (0-FEW) Urine Mucus Mod /LPF JUAN BULLARD MD Apr 08, 2019 15:18
--- NOTE | 2019-04-08 15:32 | CARD ---
MR#: [id number] Date of Study: 04/08/2019 Ordering Physician: JASMIN ROBINS, Referring Physician: JASMIN ROBINS, Tech: Ludivina Pedraza RDCS APPROVED REPORT EXAM: Two-dimensional and M-mode echocardiogram with Doppler and color Doppler. Other Information Quality : Good INDICATION Syncope 2D DIMENSIONS RVDd1.8 (2.9-3.5cm)Left Atrium(2D)2.4 (1.6-4.0cm) IVSd0.9 (0.7-1.1cm)Aortic Root(2D)2.2 (2.0-3.7cm) LVDd3.8 (3.9-5.9cm)LVOT Diameter2.2 (1.8-2.4cm) PWd0.9 (0.7-1.1cm)LVDs2.8 (2.5-4.0cm) FS (%) 27.2 %SV33.9 ml LVEF(%)53.6 (>50%) Aortic Valve AoV Peak [place].146.7cm/sAoV VTI30.6cm AO Peak GR.8.6mmHgLVOT Peak [place].121.0cm/s LVOT VTI 24.98cmAO Mean GR.4mmHg COURT (VMAX)3.55ry9PKX (VTI)3.02cm2 Mitral Valve MV E Gheyzyxx48.6cm/sMV DECEL [id number] MV A Rwttpsxf19.2cm/sMV VUB73py E/A Ratio1.7MVA (PHT)3.35cm2 TDI E/Lateral E'5.6E/Medial E'9.3 Tricuspid Valve TR P. Jfjbeppm493rk/sRAP YJJFZWYF1hmKe TR Peak Gr.00giPhJQVO45tyWn Pulmonary Vein S1 Yszcbxbr68.3cm/sD2 Kmyjiqxp46.0cm/s LEFT VENTRICLE The left ventricle is normal size. There is normal left ventricular wall thickness. The left ventricu lar systolic function is normal and the ejection fraction is within normal range. The Ejection Fracti on is 55%. There is normal LV segmental wall motion. The left ventricular diastolic function and fill ing is normal for age. RIGHT VENTRICLE The right ventricle is normal size. The right ventricular systolic function is normal. ATRIA The left atrium size is normal. The right atrium size is normal. The interatrial septum is intact wit h no evidence for an atrial septal defect or patent foramen ovale as noted on 2-D or Doppler imaging. AORTIC VALVE The aortic valve is not well visualized but appears normal by Doppler interrogation. Doppler and [place] r Flow revealed no significant aortic regurgitation. There is no significant aortic valvular stenosis . MITRAL VALVE The mitral valve is normal in structure and function. There is no evidence of mitral valve prolapse. There is no mitral valve stenosis. Doppler and Color-flow revealed trace to mild mitral regurgitation . TRICUSPID VALVE The tricuspid valve is normal in structure and function. Doppler and Color Flow revealed mild tricusp id regurgitation. There is mild pulmonary hypertension. The PA pressure was estimated at 34 mmHg. The re is no tricuspid valve stenosis. PULMONIC VALVE The pulmonic valve is not well visualized. Doppler and Color Flow revealed no pulmonic valvular regur gitation. There is no pulmonic valvular stenosis. GREAT VESSELS The aortic root is normal in size. The ascending aorta is normal in size. The IVC is normal in size a nd collapses >50% with inspiration. PERICARDIAL EFFUSION There is no evidence of significant pericardial effusion. Critical Notification Critical Value: No <Conclusion> The left ventricular systolic function is normal and the ejection fraction is within normal range. Th e Ejection Fraction is 55%. There is normal LV segmental wall motion. Doppler and Color Flow revealed mild tricuspid regurgitation. There is mild pulmonary hypertension. T he PA pressure was estimated at 34 mmHg. Signed by : Tomás King, Electronically Approved : 04/08/2019 15:31:45
[2019-04-08 15:41] LABS: AMPHETAMINE/METHAMPHETAMINE NEG (NEG); BARBITURATES NEG (NEG); BENZODIAZEPINES NEG (NEG); CANNABINOIDS NEG (NEG); COCAINE NEG (NEG); METHADONE NEG (NEG); OPIATES POS (NEG); PHENCYCLIDINE NEG (NEG)
[2019-04-08 15:56] VITALS: BP 114/61
--- NOTE | 2019-04-08 16:07 | NUR ---
SW consulted for AD. SW spoke with pt and pt named her fiance as her DPOA, Ochoa Jhaveri; [phone]. Pt is provided with original and copies to take home. Copy placed on chart. Pt denies any other SW needs at this time. SW will be available as needed.
--- NOTE | 2019-04-08 16:21 | EEG ---
DATE OF SERVICE: 04/08/2019 EEG NUMBER: [id number] OBJECTIVE: This is a 49-year-old female patient with mental status changes, alcohol intoxication, and syncopal spell. EEG was requested to help rule out seizure. METHODS: Twenty electrodes were applied according to the international 10-20 electrode placement system. EKG monitoring, hyperventilation, intermittent photic stimulation, monopolar and bipolar montages are routinely utilized. The record was obtained on a digital system with video monitoring. FINDINGS: 1. Background: The patient was recorded in the awake, drowsy, and sleep states. The overall background amplitude is 10-30 microvolts. A posterior dominant rhythm of 8-10 Hz is observed. 2. Abnormalities: No specific epileptiform discharge or electrographic seizure is seen. No focal or diffuse slowing. 3. Activation: Hyperventilation was performed with good efforts and normal response. Intermittent photic stimulation was performed with photic driving. No specific epileptiform discharge or electrographic seizure induced by hyperventilation or intermittent photic stimulation. IMPRESSION: This EEG is a normal study for the awake, drowsy, and sleep states. No focal, lateralizing, specific epileptiform discharge or electrographic seizure is seen. JUAN BULLARD MD DR: ANTONINA/flo JOB#: [id number] / [id number] SACHA
[2019-04-08] MEDS ORDERED: POLYETHYLENE GLYCOL 3350 17 GM PACKET. PO PRN (16:30)
--- NOTE | 2019-04-08 19:01 | PDOC3 ---
Discharge Summary Date of Admission: Apr 07, 2019 Date of Discharge: Apr 08, 2019 Follow-Up: 3-5 days Admitting Diagnosis comment: DISCHARGE DX Assessment/Plan IMPRESSION: 1. Cholelithiasis. WITH RUQ PAIN 2. Otherwise, unremarkable abdominal ultrasound 3, Syncope after alcohol intake 04-06, hx binge drinking No acute intracranial abnormality. ON CT HEAD 4. RECENT DX CERVICAL CA WITH PELVIC PAIN 5. TOBACCO ABUSE 6. Cholelithiasis with suggestion of gallbladder wall thickening. If concern for gallbladder pathology recommend ultrasound. 7. Mild apparent transverse colonic wall thickening, may relate to nondistention. Correlate for colitis. 8. 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 ABD SONO EEG WNL NEUROLOGY CONSULT NEUROCHECKS Q 4 HRS US GALLBLADDER NOTED She may need elective cholecystectomy 33 MIN PT EXAM D/C PLANNING , CHART REVIEW, > 50% OF time spent with exam, chart review, pt care coordination Vitals Vitals Vital Signs Date Time Temp Pulse Resp B/P (MAP) Pulse Ox O2 Delivery O2 Flow Rate FiO2 04/08/19 09:56 97 Room Air 04/08/19 07:46 98.3 68 18 103/52 (69) 98.3 Physical Exam General: Alert, Oriented X3, Cooperative, No acute distress Heart: Regular rate Lungs: Clear Abdomen: Soft, Other (MILD RUQ PAIN) Extremities: No cyanosis Labs LABS EEG is a normal study for the awake, drowsy, and sleep states. No focal, lateralizing, specific epileptiform discharge or electrographic seizure is seen. PELVIS ULTRASOUND History: Pelvic pain. Comparison: None. Technique: Grayscale and color Doppler imaging of the pelvis was performed using transabdominal technique. Patient refused transvaginal imaging. Findings: The uterus measures 10.2 x 5.2 x 4.5 cm in length. Uterus has an unremarkable appearance. The endometrial stripe measures 7.4 mm, within normal limits. Bilateral ovaries not identified due to positioning and overlying bowel gas. IMPRESSION: 1. Unremarkable pelvic ultrasound. 2. Bilateral ovaries not identified. If persistent clinical concern transvaginal imaging can further assess. Electronically signed by: Armando Dewitt DO (04/08/2019 1:18 AM) [facility] DICTATED and SIGNED BY: ARMANDO DEWITT DO DATE: 04/08/19 0118 ABDOMEN LTD History: Cholelithiasis. Comparison: CT April 06, 2019. Technique: Transabdominal ultrasound images are obtained of the right upper quadrant. Findings: Visualized pancreas is normal as visualized Liver is normal in echogenicity. Right hepatic lobe measures 15.7 cm. Portal flow is hepatopedal. Cholelithiasis. No gallbladder wall thickening. No pericholecystic fluid. Common bile duct caliber is normal measuring 4 mm in diameter. The right kidney measures 10.0 x 4.4 x 3.8 cm in length and is without evidence of obstruction or stone. Patent IVC. IMPRESSION: 1. Cholelithiasis. Electronically signed by: Armando Dewitt DO (04/08/2019 1:20 AM) [facility] Assessment and Plan Assessmemt and Plan Problems Medical Problems: (1) Alcohol intoxication Status: Acute (2) Altered mental state Status: Acute (3) Lower abdominal pain Status: Acute (4) Vasovagal syncope Status: Acute FINAL DIAGNOSIS Problems Medical Problems: (1) Alcohol intoxication Status: Acute (2) Altered mental state Status: Acute (3) Lower abdominal pain Status: Acute (4) Vasovagal syncope Status: Acute Brief Hospital Course Ms. Weber is a 49 old [sex] who presented with [ SYNCOPE, RUQ PAIN] CONDITION AT DISCHARGE: Improved Discharge Medications Current Medications Sodium Chloride 1,000 ml @ 1,000 mls/hr 1X ONCE IV Last administered on 04/06/19at 21:32; Start 04/06/19 at 21:30; Stop 04/06/19 at 22:29; Status DC Fentanyl Citrate (Fentanyl 2ml Vial) 50 mcg 1X ONCE IVP Last administered on 04/06/19at 23:34; Start 04/06/19 at 23:00; Stop 04/06/19 at 23:01; Status DC Iohexol (Omnipaque 300 Mg/ml) 75 ml 1X ONCE IV Last administered on 04/06/19at 23:00; Start 04/06/19 at 23:00; Stop 04/06/19 at 23:01; Status DC Info (CONTRAST GIVEN -- Rx MONITORING) 1 each PRN DAILY PRN MC SEE COMMENTS; Start 04/06/19 at 23:00; Stop 04/08/19 at 22:59 Ondansetron HCl (Zofran) 4 mg PRN Q8HRS PRN IV NAUSEA/VOMITING 1ST CHOICE; Start 04/06/19 at 23:45; Stop 04/07/19 at 23:44; Status DC Morphine Sulfate (Morphine Sulfate) 2 mg PRN Q2HR PRN IV SEVERE PAIN 7-10 Last administered on 04/07/19at 08:45; Start 04/06/19 at 23:45; Stop 04/07/19 at 23:44; Status DC Nicotine (Nicoderm Cq 21mg) 1 patch DAILY TD Last administered on 04/08/19at 09:54; Start 04/07/19 at 09:20 Acetaminophen/ Hydrocodone Bitart (Lortab 5/325) 1 tab PRN Q4HRS PRN PO PAIN Last administered on 04/08/19at 09:56; Start 04/07/19 at 15:30 Sodium Chloride (Normal Saline Flush) 3 ml QSHIFT PRN IV AFTER MEDS AND BLOOD DRAWS; Start 04/07/19 at 16:30 Multivitamins 10 ml/Thiamine HCl 100 mg/Folic Acid 1 mg/Sodium Chloride 1,011.2 ml @ 125 mls/ hr 1X ONCE IV Last administered on 04/07/19at 18:05; Start 04/07/19 at 17:00; Stop 04/08/19 at 01:05; Status DC Ondansetron HCl (Zofran) 4 mg PRN Q4HRS PRN IV NAUSEA/VOMITING; Start 04/07/19 at 16:30 Acetaminophen (Tylenol) 650 mg PRN Q4HRS PRN PO TEMP OVER 100.4F OR HEADACHE; Start 04/07/19 at 16:30 Al Hydroxide/Mg Hydroxide (Mylanta Plus Xs) 30 ml PRN DAILY PRN PO HEARTBURN / GAS; Start 04/07/19 at 16:30 Clonidine HCl (Catapres) 0.1 mg PRN Q6HRS PRN PO SBP>160 OR DBP>90; Start 04/07/19 at 16:30 Docusate Sodium (Colace) 100 mg PRN BID PRN PO HARD STOOLS; Start 04/07/19 at 16:30 Albuterol/ Ipratropium (Duoneb) 3 ml Q4HRS NEB ; Start 04/07/19 at 20:00 Guaifenesin (Robitussin) 200 mg PRN Q4HRS PRN PO COUGH; Start 04/07/19 at 16:30 Lorazepam (Ativan) 0.5 mg PRN Q4HRS PRN PO ANXIETY / AGITATION; Start 04/07/19 at 16:30 Enoxaparin Sodium (Lovenox 40mg Syringe) 40 mg DAILY SQ Last administered on 04/08/19at 09:55; Start 04/08/19 at 09:00 Polyethylene Glycol (miraLAX PACKET) 17 gm PRN DAILY PRN PO CONSTIPATION Last administered on 04/08/19at 17:01; Start 04/08/19 at 16:30 Active Scripts Active Vital Signs Vital Signs Date Time Temp Pulse Resp B/P (MAP) Pulse Ox O2 Delivery O2 Flow Rate FiO2 04/08/19 15:56 98.0 54 18 114/61 (78) 100 Room Air 98.0 Labs Laboratory Tests Test 04/06/19 21:18 04/06/19 21:45 04/07/19 07:35 04/08/19 14:40 White Blood Count 9.2 x10^3/uL (4.0-11.0) 7.3 x10^3/uL (4.0-11.0) Red Blood Count 5.17 x10^6/uL (3.50-5.40) 4.53 x10^6/uL (3.50-5.40) Hemoglobin 16.1 g/dL (12.0-15.5) 14.2 g/dL (12.0-15.5) Hematocrit 47.2 % (36.0-47.0) 42.0 % (36.0-47.0) Mean Corpuscular Volume 91 fL (79-100) 93 fL (79-100) Mean Corpuscular Hemoglobin 31 pg (25-35) 31 pg (25-35) Mean Corpuscular Hemoglobin Concent 34 g/dL (31-37) 34 g/dL (31-37) Red Cell Distribution Width 13.7 % (11.5-14.5) 13.7 % (11.5-14.5) Platelet Count 426 x10^3/uL (140-400) 370 x10^3/uL (140-400) Neutrophils (%) (Auto) 49 % (31-73) 55 % (31-73) Lymphocytes (%) (Auto) 40 % (24-48) 31 % (24-48) Monocytes (%) (Auto) 8 % (0-9) 10 % (0-9) Eosinophils (%) (Auto) 2 % (0-3) 3 % (0-3) Basophils (%) (Auto) 1 % (0-3) 1 % (0-3) Neutrophils # (Auto) 4.5 x10^3/uL (1.8-7.7) 4.0 x10^3/uL (1.8-7.7) Lymphocytes # (Auto) 3.7 x10^3/uL (1.0-4.8) 2.3 x10^3/uL (1.0-4.8) Monocytes # (Auto) 0.7 x10^3/uL (0.0-1.1) 0.8 x10^3/uL (0.0-1.1) Eosinophils # (Auto) 0.2 x10^3/uL (0.0-0.7) 0.2 x10^3/uL (0.0-0.7) Basophils # (Auto) 0.1 x10^3/uL (0.0-0.2) 0.1 x10^3/uL (0.0-0.2) Sodium Level 144 mmol/L (136-145) 145 mmol/L (136-145) Potassium Level 3.5 mmol/L (3.5-5.1) 3.8 mmol/L (3.5-5.1) Chloride Level 103 mmol/L (98-107) 108 mmol/L (98-107) Carbon Dioxide Level 29 mmol/L (21-32) 29 mmol/L (21-32) Anion Gap 12 (6-14) 8 (6-14) Blood Urea Nitrogen 9 mg/dL (7-20) 8 mg/dL (7-20) Creatinine 0.8 mg/dL (0.6-1.0) 0.7 mg/dL (0.6-1.0) Estimated GFR (Cockcroft-Gault) 76.9 89.7 BUN/Creatinine Ratio 11 (6-20) Glucose Level 102 mg/dL (70-99) 84 mg/dL (70-99) Calcium Level 9.0 mg/dL (8.5-10.1) 8.5 mg/dL (8.5-10.1) Magnesium Level 2.1 mg/dL (1.8-2.4) Total Bilirubin 0.3 mg/dL (0.2-1.0) Aspartate Amino Transf (AST/SGOT) 32 U/L (15-37) Alanine Aminotransferase (ALT/SGPT) 61 U/L (14-59) Alkaline Phosphatase 44 U/L (46-116) Total Protein 8.0 g/dL (6.4-8.2) Albumin 3.9 g/dL (3.4-5.0) Albumin/Globulin Ratio 1.0 (1.0-1.7) Ethyl Alcohol Level 221 mg/dL (0-10) Urine Collection Type Unknown Urine Color Yellow Urine Clarity Clear Urine pH 5.5 Urine Specific Eagle 1.010 Urine Protein Negative mg/dL (NEG-TRACE) Urine Glucose (UA) Negative mg/dL (NEG) Urine Ketones (Stick) Negative mg/dL (NEG) Urine Blood Moderate (NEG) Urine Nitrite Negative (NEG) Urine Bilirubin Negative (NEG) Urine Urobilinogen Dipstick 0.2 mg/dL (0.2 mg/dL) Urine Leukocyte Esterase Small (NEG) Urine RBC 11-20 /HPF (0-2) Urine WBC 5-10 /HPF (0-4) Urine Squamous Epithelial Cells Mod /LPF Urine Bacteria Few /HPF (0-FEW) Urine Mucus Mod /LPF Urine Opiates Screen Pos (NEG) Urine Methadone Screen Neg (NEG) Urine Barbiturates Neg (NEG) Urine Phencyclidine Screen Neg (NEG) Urine Amphetamine/Methamphetamine Neg (NEG) Urine Benzodiazepines Screen Neg (NEG) Urine Cocaine Screen Neg (NEG) Urine Cannabinoids Screen Neg (NEG) Urine Ethyl Alcohol Neg (NEG) Laboratory Tests Test 04/08/19 14:40 Urine Opiates Screen Pos (NEG) Urine Methadone Screen Neg (NEG) Urine Barbiturates Neg (NEG) Urine Phencyclidine Screen Neg (NEG) Urine Amphetamine/Methamphetamine Neg (NEG) Urine Benzodiazepines Screen Neg (NEG) Urine Cocaine Screen Neg (NEG) Urine Cannabinoids Screen Neg (NEG) Urine Ethyl Alcohol Neg (NEG) Allergies Allergies Coded Allergies Type Severity Reaction Last Updated Verified Penicillins Allergy Intermediate 01/21/19 Yes Disposition/Orders: D/C to Home Patient Instructions D/C PLANNING 34 MIN JASMIN ROBINS MD Apr 08, 2019 19:01
[2019-04-08] MEDS ORDERED: ACET325T9 PO (19:03)
[2019-04-08] MEDS ORDERED: Nicotine 21MG TD (19:03)
[2019-04-08] MEDS ORDERED: DOCU-153 PO (19:03)
--- NOTE | 2019-04-08 19:04 | DISCH ---
DISCHARGE INSTRUCTIONS Condition on Discharge Condition on Discharge: Stable Activity After Discharge Activity Instructions for Disc: Activity as tolerated Exercise Instruction after Dis: Walk 10 min, 3 x per day Driving Instructions after Dis: Do not drive today Diet after Discharge Diet after Discharge: Regular Checks after Discharge Checks after discharge: Check blood press - daily Contacting the after DC Call your doctor for: If your condition worsens Warfarin Follow-Up Warfarin Follow UP: SEE PCP THIS WEEK, [employer] ANALYST THIS WEEK, SURGERY SOON JASMIN BAKER MD Apr 08, 2019 19:04
--- NOTE | 2019-04-08 20:00 | NUR ---
Pt discharge instructions given and informed to follow-up with Physicians and schedule appt with Dr. Delaney, pt given telephone number to call. Pt verbalize understanding of instructions and informed of prn medications and when to report to Ed. Pt verbalize understanding. Pt ambulated to car with assistance of this Nurse. No complaints of dizziness or any other symptoms noted. Pt able to ambulate with steady gait. No complaints noted.
== END 2019-04-08 20:00 | disposition home or self-care (01) | DRG 444 ==
LOC: ER 20:57 → 6 SOUTH 23:44
PROVIDERS: ADMIT Family Medicine; ATTEND Family Medicine
DX: K80.20 Calculus of gallbladder without cholecystitis without obstruction (principal); G92 Toxic encephalopathy; N39.0 Urinary tract infection, site not specified; C53.9 Malignant neoplasm of cervix uteri, unspecified; F10.129 Alcohol abuse with intoxication, unspecified; F17.210 Nicotine dependence, cigarettes, uncomplicated; J44.9 Chronic obstructive pulmonary disease, unspecified; Z80.7 Family history of other malignant neoplasms of lymphoid, hematopoietic and related tissues; Z85.41 Personal history of malignant neoplasm of cervix uteri; Z88.0 Allergy status to penicillin; R63.4 Abnormal weight loss; N87.9 Dysplasia of cervix uteri, unspecified; Z68.28 Body mass index [BMI] 28.0-28.9, adult
CPT/HCPCS: 36415; 70450; 71045; 74177; 76705; 76856; 80048; 80053; 80307; 81001; 83735; 85025; 86705; 86709; 86803; 87086; 87340; 87521; 93005; 93306; 93880; 95816; 96361; 96365; 96366; 96375; 96376; G0480; J1650; J2270; J3010; J7030; Q9967; 99285-25; G0378